=== PATIENT | female | born 1930 | race Caucasian/White ===

== ENCOUNTER 2018-02-08 11:29 | Inpatient (IN) | payer MEDICARE, OTHER ==
[2018-02-08] VITALS (10 sets, daily range): BP systolic 93–147; BP diastolic 59–75; PULSE 67–105; RESP 16–26; TEMP 96.8–98.3; O2SAT 80–97
[~2018-02-08] VITALS: Ht 157.5 cm; Wt 66.0 kg
--- NOTE | 2018-02-08 12:25 | PD ---
HPI Chief Complaint: Respiratory Symptoms Time Seen by Provider: 12:18 Travel History International Travel<30 days: No Contact w/Intl Traveler<30days: No Traveled to known affect area: No History of Present Illness HPI 87-year-old female patient with history of A. fib currently on Coumadin, previous DVT and PE, previous pulmonary surgery for large PE blood clot, here because she is getting worsening dyspnea on exertion and shortness of breath over last 2 weeks. She denies any fevers, coughing, but complains currently of chest discomfort. She denies any abdominal pain or other symptoms. Modifying Factors: None Associated Signs & Symptoms: Dyspnea on exertion, worsening shortness of breath over the last 2 week, chest discomfort Risk Factors: A. fib [facility] Social History Tobacco Use: No Allergies-Medications (Allergen,Severity, Reaction): Coded Allergies: No Known Allergies (Unverified , 02/08/18) Review of Systems Except as stated in HPI: all other systems reviewed are Neg Physical Exam Narrative GENERAL: Well-developed elderly female patient currently and moderate respiratory distress. Awake and oriented 3. SKIN: Focused skin assessment warm/dry. HEAD: Atraumatic. Normocephalic. EYES: Pupils equal and round. No scleral icterus. No injection or drainage. ENT: No nasal bleeding or discharge. Mucous membranes pink and moist. NECK: Trachea midline. No JVD. Supple. CARDIOVASCULAR: Regular rate and rhythm. No murmur appreciated. RESPIRATORY: Moderate accessory muscle use. Decreased throughout. Breath sounds equal bilaterally. GASTROINTESTINAL: Abdomen soft, non-tender, nondistended. Hepatic and splenic margins not palpable. MUSCULOSKELETAL: No obvious deformities. No clubbing. No cyanosis. Left leg edema. NEUROLOGICAL: Awake and alert. No obvious cranial nerve deficits. Motor grossly within normal limits. Normal speech. PSYCHIATRIC: Appropriate mood and affect; insight and judgment normal. Data Data Last Documented VS Vital Signs Date Time Temp Pulse Resp B/P (MAP) Pulse Ox O2 Delivery O2 Flow Rate FiO2 02/08/18 14:00 67 24 93/68 (76) 97 Nasal Cannula 3.00 02/08/18 11:32 96.8 Orders Orders Electrocardiogram (02/08/18 ) Complete Blood Count With Diff (02/08/18 12:18) Comprehensive Metabolic Panel (02/08/18 12:18) B-Type Natriuretic Peptide (02/08/18 12:18) Act Partial Throm Time (Ptt) (02/08/18 12:18) Prothrombin Time / Inr (Pt) (02/08/18 12:18) Ckmb (Isoenzyme) Profile (02/08/18 12:18) Troponin I (02/08/18 12:18) Arterial Blood Gas (Abg) (02/08/18 12:18) Iv Access Insert/Monitor (02/08/18 12:18) Electrocardiogram (02/08/18 12:18) Ecg Monitoring (02/08/18 12:18) Oximetry (02/08/18 12:18) Oxygen Administration (02/08/18 12:18) Chest, Single Ap (02/08/18 12:18) Sodium Chloride 0.9% Flush (Ns Flush) (02/08/18 12:30) Blood Culture (02/08/18 12:18) Ct Pulmonary Angiogram (02/08/18 13:53) Iohexol 350 Inj (Omnipaque 350 Inj) (02/08/18 14:35) Heparin Inj (Heparin Inj) (02/08/18 15:04) Heparin Inj (Heparin Inj) (02/08/18 21:15) Heparin Inj (Heparin Inj) (02/08/18 21:15) Heparin-D5w 25,000 U/250 Ml (Heparin-D5w (02/08/18 15:15) Act Partial Throm Time (Ptt) (02/08/18 15:04) Cbc No Diff, Includes Plts (02/08/18 15:04) Cbc No Diff, Includes Plts (02/11/18 06:00) Act Partial Throm Time (Ptt) (02/08/18 22:04) Occult Blood (Hemoccult) Stool (02/08/18 15:04) Admit Order (Ed Use Only) (02/08/18 15:36) Labs Laboratory Tests Test 02/08/18 12:30 02/08/18 12:55 White Blood Count 8.1 TH/MM3 Red Blood Count 3.83 MIL/MM3 Hemoglobin 12.3 GM/DL Hematocrit 36.4 % Mean Corpuscular Volume 94.9 FL Mean Corpuscular Hemoglobin 32.2 PG Mean Corpuscular Hemoglobin Concent 33.9 % Red Cell Distribution Width 16.5 % Platelet Count 126 TH/MM3 Mean Platelet Volume 10.2 FL CBC Comment AUTO DIFF Differential Total Cells Counted 100 Neutrophils % (Manual) 50 % Band Neutrophils % 4 % Lymphocytes % 9 % Monocytes % 36 % Basophils % 1 % Neutrophils # (Manual) 4.4 TH/MM3 Differential Comment FINAL DIFF MANUAL Platelet Estimate LOW Platelet Morphology Comment NORMAL Red Cell Morphology Comment NORMAL Prothrombin Time 14.4 SEC Prothromb Time International Ratio 1.4 RATIO Activated Partial Thromboplast Time 27.5 SEC Blood Urea Nitrogen 17 MG/DL Creatinine 0.86 MG/DL Random Glucose 159 MG/DL Total Protein 6.3 GM/DL Albumin 3.1 GM/DL Calcium Level 8.1 MG/DL Alkaline Phosphatase 55 U/L Aspartate Amino Transf (AST/SGOT) 21 U/L Alanine Aminotransferase (ALT/SGPT) 18 U/L Total Bilirubin 1.1 MG/DL Sodium Level 144 MEQ/L Potassium Level 3.3 MEQ/L Chloride Level 109 MEQ/L Carbon Dioxide Level 27.3 MEQ/L Anion Gap 8 MEQ/L Estimat Glomerular Filtration Rate 62 ML/MIN Total Creatine Kinase 22 U/L Troponin I LESS THAN 0.02 NG/ML B-Type Natriuretic Peptide 369 PG/ML Blood Gas Puncture Site RT RADIAL Blood Gas Patient Temperature 98.6 Blood Gas HCO3 27 mmol/L Blood Gas Base Excess 3.1 mmol/L Blood Gas Oxygen Saturation 91 % Arterial Blood pH 7.47 Arterial Blood Partial Pressure CO2 37 mmHg Arterial Blood Partial Pressure O2 65 mmHG Arterial Blood Oxygen Content 14.5 Vol % Arterial Blood Carboxyhemoglobin 2.2 % Arterial Blood Methemoglobin 0.5 % Blood Gas Hemoglobin 11.4 G/DL Oxygen Delivery Device NASAL CANNULA Blood Gas Liter Flow 4 L/M [facility] Medical Decision Making Medical Screen Exam Complete: Yes Emergency Medical Condition: Yes Medical Record Reviewed: Yes Interpretation(s) EKG shows NSR, no ST elevation or depression, and no arrhythmias. No significant T-wave inversions. Laboratory Tests Test 02/08/18 12:30 02/08/18 12:55 Red Blood Count 3.83 MIL/MM3 (4.00-5.30) Platelet Count 126 TH/MM3 (150-450) Monocytes % 36 % (0-8) Platelet Estimate LOW (NORMAL) Prothrombin Time 14.4 SEC (9.8-11.6) Random Glucose 159 MG/DL (74-106) Total Protein 6.3 GM/DL (6.4-8.2) Albumin 3.1 GM/DL (3.4-5.0) Calcium Level 8.1 MG/DL (8.5-10.1) Total Bilirubin 1.1 MG/DL (0.2-1.0) Potassium Level 3.3 MEQ/L (3.5-5.1) Chloride Level 109 MEQ/L (98-107) Estimat Glomerular Filtration Rate 62 ML/MIN (>89) Total Creatine Kinase 22 U/L (26-192) Troponin I LESS THAN 0.02 NG/ML B-Type Natriuretic Peptide 369 PG/ML (0-100) Blood Gas HCO3 27 mmol/L (22-26) Blood Gas Base Excess 3.1 mmol/L (-2-2) Arterial Blood pH 7.47 (7.380-7.420) Arterial Blood Partial Pressure CO2 37 mmHg (38-42) Blood Gas Hemoglobin 11.4 G/DL (12.0-16.0) Last [address] Angiography 02/08/18 1353 Signed Impressions: Service Date/Time: January 14:33 - CONCLUSION: 1. There is evidence of pulmonary emboli in 2 segmental branches of the right lower lung. 2. Scattered diffuse interstitial infiltrates bilaterally. 3. Atelectasis in the right lung base. 4. Diffuse cardiomegaly. Niko Haq MD Chest X-Ray 02/08/18 1218 Signed Impressions: Service Date/Time: January 12:20 - CONCLUSION: Cardiomegaly. Scattered perihilar patchiness consistent with atelectasis and/or mild infiltrates. Dell Chambers MD Differential Diagnosis Dyspnea on exertion worsening shortness of breath: Dysrhythmias versus CHF versus COPD versus pneumonia versus symptomatic anemia Narrative Course Chest x-ray was done initially showing bilateral infiltrates with left lower lobe infiltrates concerning for underlying pneumonia. However, considering her history, PE study was also done which shows a PE. Her INR is mildly low as well. She was initiated on heparin therapy. At this point, plan would be to admit her for further treatment. Case has been discussed with Dr. Doshi for admission. Diagnosis Primary Impression: Shortness of breath Additional Impression: Pulmonary embolism Admitting Information Admitting Physician Requests: Admit Rosaline Balbuena MD Feb 08, 2018 12:25
[2018-02-08] MEDS ORDERED: SODIUM CHLORIDE 0.9% FLUSH 10 ML FLUSH IVF PRN (12:30)
--- NOTE | 2018-02-08 12:58 | RADRPT ---
EXAM DATE/TIME: 02/08/2018 12:20 [facility] COMPARISON: No previous studies available for comparison. INDICATIONS : Short of breath for a week. MEDICAL HISTORY : Unobtainable. SURGICAL HISTORY : Unobtainable. ENCOUNTER: Initial ACUITY: 1 week PAIN SCORE: Non-responsive. LOCATION: Bilateral chest FINDINGS: Median sternotomy wires are noted status post cardiac surgery. The heart is enlarged. Scattered perih ilar patchiness is noted bilaterally consistent with possible atelectasis and/or mild infiltrates. Le ft subclavian dual lead pacemaker has its tips in the right atrium and right ventricle. No pneumothor ax is noted. CONCLUSION: Cardiomegaly. Scattered perihilar patchiness consistent with atelectasis and/or mild infiltrates. Dell Chambers MD on February 08, 2018 at 12:55 Board Certified Radiologist. This report was verified electronically.
[2018-02-08 13:03] LABS: HEMATOCRIT 36.4 % (35.0-46.0); HEMOGLOBIN 12.3 GM/DL (11.6-15.3); MEAN CELL VOLUME 94.9 FL (80.0-100.0); MEAN CORPUSCULAR HEMOGLOBIN 32.2 PG (27.0-34.0); MEAN CORPUSCULAR HGB CONC 33.9 % (32.0-36.0); MEAN PLATELET VOLUME 10.2 FL (7.0-11.0); PLATELET COUNT 126 TH/MM3 (150-450); RED BLOOD COUNT 3.83 MIL/MM3 (4.00-5.30); RED CELL DISTRIBUTION WIDTH 16.5 % (11.6-17.2); WHITE BLOOD COUNT 8.1 TH/MM3 (4.0-11.0)
[2018-02-08 13:10] LABS: INTERNATIONAL NORMALIZED RATIO 1.4 RATIO; PROTHROMBIN TIME - PATIENT 14.4 SEC (9.8-11.6)
[2018-02-08 13:22] LABS: ALBUMIN 3.1 GM/DL (3.4-5.0); ALT (GPT) 18 U/L (10-53); AST (GOT) 21 U/L (15-37); BICARBONATE 27.3 MEQ/L (21.0-32.0); BLOOD UREA NITROGEN 17 MG/DL (7-18); CALCIUM 8.1 MG/DL (8.5-10.1); CHLORIDE 109 MEQ/L (98-107); CREATININE 0.86 MG/DL (0.50-1.00); GLOMERULAR FILTRATION RATE 62 ML/MIN (>89); GLUCOSE,RANDOM 159 MG/DL (74-106); SODIUM (NA) 144 MEQ/L (136-145)
[2018-02-08 13:26] LABS: ALKALINE PHOSPHATASE 55 U/L (45-117); TOTAL BILIRUBIN ADULT 1.1 MG/DL (0.2-1.0); TOTAL PROTEIN 6.3 GM/DL (6.4-8.2); TROPONIN I LESS THAN 0.02 NG/ML (0.02-0.05)
[2018-02-08 13:34] LABS: BANDS 4 % (0-6); BASOPHILS 1 % (0-2); LYMPHOCYTES 9 % (9-44); MONOCYTES 36 % (0-8); NEUTROPHIL # MANUAL DIFF 4.4 TH/MM3 (1.8-7.7); POLYS (SEG NEUTROPHILS) 50 % (16-70)
[2018-02-08] MEDS ORDERED: IOHEXOL 350 MG/ML 10 ML VIAL (for RAD DIAG) IVCONTRAST ONE (14:35)
--- NOTE | 2018-02-08 15:00 | RADRPT ---
EXAM DATE/TIME: 02/08/2018 14:33 [facility] COMPARISON: No previous studies available for comparison. INDICATIONS : Dyspnea for 1 week IV CONTRAST: 73 cc Omnipaque 350 (iohexol) IV RADIATION DOSE: 9.39 CTDIvol (mGy) MEDICAL HISTORY : None SURGICAL HISTORY : None. ENCOUNTER: Initial ACUITY: 1 week PAIN SCALE: 0/10 LOCATION: chest TECHNIQUE: Volumetric scanning of the chest was performed using a pulmonary embolism protocol MIP images were re constructed. Using automated exposure control and adjustment of the mA and/or kV according to patien t size, radiation dose was kept as low as reasonably achievable to obtain optimal diagnostic quality images. DICOM format image data is available electronically for review and comparison. Follow-up recommendations for detected pulmonary nodules are based at a minimum on nodule size and pa tient risk factors according to Fleischner Society Guidelines. FINDINGS: PULMONARY ARTERIES: There are 2 filling defects in segmental branches of the posterior right lower lung pulmonary arterie s. This is characteristic for pulmonary embolism. No definite pulmonary emboli are seen in the left p ulmonary artery surgery. LUNGS: Scattered interstitial infiltrates are seen throughout both lung amanda. There is atelectasis in the right lung base. PLEURAE: There is no pleural thickening or pleural effusion. MEDIASTINUM: There is good visualization of the great vessels of the middle mediastinum. No evidence of mediastin al or hilar adenopathy/mass. Cardiomegaly. MUSCULOSKELETAL: Within normal limits for patient age. MISCELLANEOUS: The visualized upper abdominal organs demonstrate no acute abnormality. CONCLUSION: 1. There is evidence of pulmonary emboli in 2 segmental branches of the right lower lung. 2. Scattered diffuse interstitial infiltrates bilaterally. 3. Atelectasis in the right lung base. 4. Diffuse cardiomegaly. Niko Haq MD on February 08, 2018 at 14:55 Board Certified Radiologist. This report was verified electronically.
[2018-02-08] MEDS ORDERED: HEPARIN - 10,000 UNITS/ML IV ADDITIVE IV PUSH STA (15:04)
[2018-02-08] MEDS ORDERED: BISACODYL 10 MG SUPP RECTAL PRN (15:45)
[2018-02-08] MEDS ORDERED: MAGNESIUM HYDROXIDE SUSP 30 ML CUP PO PRN (15:45)
[2018-02-08] MEDS ORDERED: SENNOSIDES 8.6 MG TAB PO PRN (15:45)
[2018-02-08] MEDS ORDERED: LACTULOSE SYRUP 20 GM/30 ML CUP PO PRN (15:45)
[2018-02-08] MEDS ORDERED: NALOXONE HCL 0.4 MG/ML AMP IV PUSH PRN (15:45)
[2018-02-08] MEDS ORDERED: ONDANSETRON HCL 4 MG/2 ML VIAL IVP PRN (15:45)
[2018-02-08 16:21] LABS: HEMATOCRIT 33.8 % (35.0-46.0); HEMOGLOBIN 11.5 GM/DL (11.6-15.3); MEAN CELL VOLUME 95.3 FL (80.0-100.0); MEAN CORPUSCULAR HEMOGLOBIN 32.3 PG (27.0-34.0); MEAN CORPUSCULAR HGB CONC 33.9 % (32.0-36.0); MEAN PLATELET VOLUME 10.1 FL (7.0-11.0); PLATELET COUNT 124 TH/MM3 (150-450); RED BLOOD COUNT 3.55 MIL/MM3 (4.00-5.30); RED CELL DISTRIBUTION WIDTH 16.6 % (11.6-17.2); WHITE BLOOD COUNT 6.9 TH/MM3 (4.0-11.0)
[2018-02-08] MEDS ORDERED: HEPARIN SODIUM - IV 10,000 UNITS/10 ML VIAL IV PUSH STA (17:14)
[2018-02-08] MEDS: HEPARIN-D5W 25,000 U/250 ML 250 ML IV PRN (17:29)
--- NOTE | 2018-02-08 19:10 | HHI.HP ---
[facility] Unknown Admission Diagnosis Shortness of breath/hypoxia/PE Diagnoses: Travel History International Travel<30 Days: No Contact w/Intl Traveler <30 Da: No Traveled to Known Affected Are: No History of Present Illness Patient is an 87-year-old female with past medical history of tremors, history of rib fractures/T8 fracture, PE, atrial fibrillation presented to the emergency room with worsening shortness of breath. Patient states this started about a week ago. It progressively got worse to the point that today she told her that she needed to go to the emergency room for further evaluation. She states that she chronically uses oxygen at home and uses about 2.5 L a day. She states that the tremors do affect her speech and that is normal for her. She is from [facility] and is visiting. She is supposed to leave to [place] on Monday. She states that she is on Coumadin, however, her dose was decreased while she was on a prednisone taper. She was put on a prednisone taper by her vegetable farmer because of low platelet count. She does not know the actual diagnosis however her last platelet which was measured in January of this year was 108. She states she was on the prednisone for 5 weeks and prior to being on prednisone her Coumadin dose was 2 mg p.o. daily, now she is taking 1mg po daily. She denies any chest pain, nausea or vomiting, abdominal pain, burning with urination or increased urinary frequency. She does have some sinus drainage, admits to mild cough related to that. Review of Systems Except as stated in HPI: all other systems reviewed are Neg Past Family Social History Past Medical History tremors, history of rib fractures/T8 fracture, PE, atrial fibrillation Past Surgical History Ovary removal, clot removal from her lungs Reported Medications Pt brought her medication pills box but didn't bring her actual bottles and doesn't know what meds she takes or dose Allergies: Coded Allergies: No Known Allergies (Unverified , 02/08/18) Family History Both parents of old age Social History Quit smoking in the 1960s, drinks alcohol occasionally, denies illegal drug use Physical Exam Vital Signs Vital Signs Date Time Temp Pulse Resp B/P (MAP) Pulse Ox O2 Delivery O2 Flow Rate FiO2 02/08/18 17:39 02/08/18 16:52 68 22 123/59 (80) 94 Nasal Cannula 4.00 02/08/18 16:00 98.3 70 16 124/75 (91) 91 02/08/18 14:00 67 24 93/68 (76) 97 Nasal Cannula 3.00 02/08/18 12:21 95 Nasal Cannula 4.00 02/08/18 12:21 69 20 107/59 (75) 95 Nasal Cannula 4.00 02/08/18 12:16 97 Nasal Cannula 4.00 02/08/18 12:16 70 26 107/59 (75) 96 Nasal Cannula 4.00 02/08/18 11:32 96.8 105 26 112/61 (78) 80 Physical Exam GENERAL: Pleasant elderly female, nasal cannula in place, satting 90% on 5 L SKIN: No rashes, ecchymoses or lesions. Cool and dry. HEAD: Atraumatic. Normocephalic. EYES: Pupils equal round and reactive. Extraocular motions intact. ENT: Nose without drainage. Throat without erythema, tonsillar hypertrophy or exudate. Uvula midline. Airway patent. NECK: Trachea midline. CARDIOVASCULAR: Regular rate and rhythm without murmurs RESPIRATORY: Decreased breath sounds however no wheezing or crackles. Breath sounds equal bilaterally. GASTROINTESTINAL: Abdomen soft, non-tender, nondistended. No guarding. MUSCULOSKELETAL: Mild edema noted on the left lower extremity, none noted on the right. Negative Homans sign bilaterally. NEUROLOGICAL: Awake and alert. Motor and sensory grossly within normal limits. Normal speech. Laboratory Laboratory Tests Test 02/08/18 12:30 02/08/18 12:55 02/08/18 15:30 White Blood Count 8.1 6.9 Red Blood Count 3.83 3.55 Hemoglobin 12.3 11.5 Hematocrit 36.4 33.8 Mean Corpuscular Volume 94.9 95.3 Mean Corpuscular Hemoglobin 32.2 32.3 Mean Corpuscular Hemoglobin Concent 33.9 33.9 Red Cell Distribution Width 16.5 16.6 Platelet Count 126 124 Mean Platelet Volume 10.2 10.1 CBC Comment AUTO DIFF Differential Total Cells Counted 100 Neutrophils % (Manual) 50 Band Neutrophils % 4 Lymphocytes % 9 Monocytes % 36 Basophils % 1 Neutrophils # (Manual) 4.4 Differential Comment FINAL DIFF MANUAL Platelet Estimate LOW Platelet Morphology Comment NORMAL Red Cell Morphology Comment NORMAL Prothrombin Time 14.4 Prothromb Time International Ratio 1.4 Activated Partial Thromboplast Time 27.5 26.8 Blood Urea Nitrogen 17 Creatinine 0.86 Random Glucose 159 Total Protein 6.3 Albumin 3.1 Calcium Level 8.1 Alkaline Phosphatase 55 Aspartate Amino Transf (AST/SGOT) 21 Alanine Aminotransferase (ALT/SGPT) 18 Total Bilirubin 1.1 Sodium Level 144 Potassium Level 3.3 Chloride Level 109 Carbon Dioxide Level 27.3 Anion Gap 8 Estimat Glomerular Filtration Rate 62 Total Creatine Kinase 22 Troponin I LESS THAN 0.02 B-Type Natriuretic Peptide 369 Blood Gas Puncture Site RT RADIAL Blood Gas Patient Temperature 98.6 Blood Gas HCO3 27 Blood Gas Base Excess 3.1 Blood Gas Oxygen Saturation 91 Arterial Blood pH 7.47 Arterial Blood Partial Pressure CO2 37 Arterial Blood Partial Pressure O2 65 Arterial Blood Oxygen Content 14.5 Arterial Blood Carboxyhemoglobin 2.2 Arterial Blood Methemoglobin 0.5 Blood Gas Hemoglobin 11.4 Oxygen Delivery Device NASAL CANNULA Blood Gas Liter Flow 4 Date/Time Source Procedure Growth Status 02/08/18 12:30 Blood Peripheral Aerobic Blood Culture Pending Received 02/08/18 12:30 Blood Peripheral Anaerobic Blood Culture Pending Received Result Diagram: 02/08/18 1530 02/08/[address] Angiography 02/08/18 1353 Signed Impressions: Service Date/Time: January 14:33 - CONCLUSION: 1. There is evidence of pulmonary emboli in 2 segmental branches of the right lower lung. 2. Scattered diffuse interstitial infiltrates bilaterally. 3. Atelectasis in the right lung base. 4. Diffuse cardiomegaly. Niko Haq MD Chest X-Ray 02/08/18 1218 Signed Impressions: Service Date/Time: January 12:20 - CONCLUSION: Cardiomegaly. Scattered perihilar patchiness consistent with atelectasis and/or mild infiltrates. MD Ayush Jonesi VTE Risk Assessment Caprini VTE Risk Assessment: Mod/High Risk (score >= 2) Caprini Risk Assessment Model Point Value = 1 Point Value = 2 Point Value = 3 Point Value = 5 Age 41-60 Minor surgery BMI > 25 kg/m2 Swollen legs Varicose veins or History of unexplained or recurrent spontaneous Oral contraceptives or hormone replacement Sepsis (< 1 month) Serious lung disease, including pneumonia (< 1 month) Abnormal pulmonary function Acute myocardial infarction Congestive heart failure (< 1 month) History of inflammatory bowel disease Medical patient at bed rest Age 61-74 Arthroscopic surgery Major open surgery (> 45 min) Laparoscopic surgery (> 45 min) Malignancy Confined to bed (> 72 hours) Immobilizing plaster cast Central venous access Age >= 75 History of VTE Family history of VTE Factor V Leiden Prothrombin [id number] Lupus anticoagulant Anticardiolipin antibodies Elevated serum homocysteine Heparin-induced thrombocytopenia Other congenital or acquired thrombophilia Stroke (< 1 month) Elective arthroplasty Hip, pelvis, or leg fracture Acute spinal cord injury (< 1 month) Prophylaxis Regimen Total Risk Factor Score Risk Level Prophylaxis Regimen 0-1 Low Early ambulation 2 Moderate Order ONE of the following: *Sequential Compression Device (SCD) *Heparin 5000 units SQ BID 3-4 Higher Order ONE of the following medications: *Heparin 5000 units SQ TID *Enoxaparin/Lovenox 40 mg SQ daily (WT < 150 kg, CrCl > 30 mL/min) *Enoxaparin/Lovenox 30 mg SQ daily (WT < 150 kg, CrCl > 10-29 mL/min) *Enoxaparin/Lovenox 30 mg SQ BID (WT < 150 kg, CrCl > 30 mL/min) AND/OR *Sequential Compression Device (SCD) 5 or more Highest Order ONE of the following medications: *Heparin 5000 units SQ TID (Preferred with Epidurals) *Enoxaparin/Lovenox 40 mg SQ daily (WT < 150 kg, CrCl > 30 mL/min) *Enoxaparin/Lovenox 30 mg SQ daily (WT < 150 kg, CrCl > 10-29 mL/min) *Enoxaparin/Lovenox 30 mg SQ BID (WT < 150 kg, CrCl > 30 mL/min) AND *Sequential Compression Device (SCD) Assessment and Plan Assessment and Plan PE: CTA showed PE into segmental branches of the right lower lung. Patient started on a heparin drip. Check 2D echo to rule out any cardiac strain. consider resuming coumadin to 2mg po daily (dose prior to cutting it in half while on prednisone) tomorrow or discuss use of newer anticoagulants. Per pt, she was doing well w coumadin however on admission INR was 1.4. continue supplemental oxygen. Currently on 5 L. ABG showed a pH of 7.47, HCO3 of 27, CO2 of 37. Monitor pt closely. Pt wishes to be DNR. Atrial fibrillation: Pt only has her pill box and doesn't have her med bottles and doesn't remember the actual dose or what meds she takes. She states she is on sotalol and cardizem. She did have a bottle of cardizem CD 120mg po qhs which apparently she started taking 2 nights ago but states she also takes cardizem in AM but doesn't remember dose. She also doesn't remember dose of sotalol. I have requested that RN bring pills to pharmacy and see if the pharmacist can assist us w pt's meds. tremors: chronic and stable. DVT proph: heparin gtt. Code Status DNR Discussed Condition With ER physician and patient Sally Doshi MD Feb 08, 2018 19:10
[2018-02-08] MEDS ORDERED: DILTIAZEM-CD 120 MG CAP ER PO SCH (21:00)
[2018-02-08] MEDS ORDERED: HEPARIN SODIUM - IV 10,000 UNITS/10 ML VIAL IV PUSH PRN ×2 (21:15)
[2018-02-08] MEDS: DOCUSATE SODIUM 50 MG/SENNA 8.6 MG TAB PO SCH (21:42)
[2018-02-08] MEDS: SODIUM CHLORIDE 0.9% FLUSH 10 ML FLUSH IV FLUSH SCH (21:43)
[2018-02-08] MEDS: RESP: ALBUTEROL 2.5 MG/IPRATROPIUM 0.5 MG NEB (PRN) NEB (22:09)
[2018-02-09] VITALS (9 sets, daily range): BP systolic 125–130; BP diastolic 58–74; PULSE 66–88; RESP 16–21; TEMP 97.2–98.2; O2SAT 87–95
--- NOTE | 2018-02-09 01:53 | RADRPT ---
EXAM DATE/TIME: 02/09/2018 01:18 [facility] COMPARISON: CT PULMONARY ANGIOGRAM, February 08, 2018, 14:33. CHEST SINGLE AP, February 08, 2018, 12:20. INDICATIONS : Respiratory distress. Worsening shortness of breath. MEDICAL HISTORY : None. SURGICAL HISTORY : None. ENCOUNTER: Subsequent ACUITY: 2 days PAIN SCORE: 0/10 LOCATION: Bilateral chest FINDINGS: Patchy bibasilar consolidation noted and appears slightly slightly worse compared to yesterday. No la rge effusion seen. No pneumothorax. Heart size stable, mildly enlarged. Patient has had previous median sternotomy. Cardiac pacer again s een. CONCLUSION: Modest worsening bibasilar consolidation. Rom Moses MD on February 09, 2018 at 1:49 Board Certified Radiologist. This report was verified electronically.
[2018-02-09] MEDS: RESP: ALBUTEROL 2.5 MG/IPRATROPIUM 0.5 MG NEB (PRN) NEB (04:41)
[2018-02-09] MEDS: SODIUM CHLORIDE 0.9% FLUSH 10 ML FLUSH IV FLUSH SCH ×3 (09:00→21:00)
[2018-02-09] MEDS: DOCUSATE SODIUM 50 MG/SENNA 8.6 MG TAB PO SCH ×2 (10:29→21:59)
[2018-02-09] MEDS: SODIUM CHLORIDE 0.9% FLUSH 10 ML FLUSH IV FLUSH PRN (10:30)
[2018-02-09 11:09] LABS: INTERNATIONAL NORMALIZED RATIO 1.4 RATIO; PROTHROMBIN TIME - PATIENT 14.3 SEC (9.8-11.6)
--- NOTE | 2018-02-09 11:15 | EKG ---
Date Performed: 02/08/2018 Time Performed: 12:19:33 PTAGE: 87 years EKG: Sinus rhythm POSSIBLE LEFT ATRIAL ENLARGEMENT NONSPECIFIC T-WAVE ABNORMALITY BORDERLINE ECG NO PREVIOUS TRACING DOCTOR: Elieser Donahue Interpretating Date/Time 02/12/2018 07:51:19
--- NOTE | 2018-02-09 11:15 | EKG ---
Date Performed: 02/08/2018 Time Performed: 12:54:37 PTAGE: 87 years EKG: Sinus rhythm WITH OCCASIONAL VENTRICULAR PREMATURE COMPLEXES WITH OCCASIONAL SUPRAVENTRICULAR PREMATURE COMPLEXES POSSIBLE RIGHT VENTRICULAR CONDUCTION DELAY NONSPECIFIC ST & T-WAVE ABNORMALITY BORDERLINE ECG PREVIOUS TRACING : 02/08/2018 12.19 DOCTOR: Elieser Donahue Interpretating Date/Time 02/09/2018 11:12:20
[2018-02-09] MEDS ORDERED: RESP: ALBUTEROL 2.5 MG/3 ML NEB (PRN) INH (11:30)
[2018-02-09] MEDS ORDERED: SODIUM CHLORIDE 0.9% FLUSH 10 ML FLUSH IV FLUSH PRN (11:30)
[2018-02-09] MEDS ORDERED: RESP: ALBUTEROL 2.5 MG/IPRATROPIUM 0.5 MG NEB (PRN) INH (11:30)
[2018-02-09] MEDS ORDERED: TYLE325T PO (11:36)
[2018-02-09] MEDS ORDERED: KLOR20TA3 PO (11:36)
[2018-02-09] MEDS ORDERED: DILT-48 PO (11:36)
[2018-02-09] MEDS ORDERED: [UNRECOGNIZED DRUG - OTHER] OP (11:36)
[2018-02-09] MEDS ORDERED: PRED10 PO (11:36)
[2018-02-09] MEDS ORDERED: FURO20TA PO (11:36)
[2018-02-09] MEDS ORDERED: SOTA120T PO (11:36)
[2018-02-09] MEDS ORDERED: ADCI20TA PO (11:36)
[2018-02-09] MEDS ORDERED: OMEP40CA2 PO (11:36)
[2018-02-09] MEDS ORDERED: WARF-20 PO (11:36)
[2018-02-09] MEDS ORDERED: DILT1TAB4 PO (11:36)
[2018-02-09] MEDS ORDERED: CHOL5000 PO (11:36)
--- NOTE | 2018-02-09 11:42 | HHI.PR ---
Subjective Remarks Patient is an 87-year-old female with past medical history of tremors, history of rib fractures/T8 fracture, PE, atrial fibrillation presented to the emergency room with worsening shortness of breath. Patient states this started about a week ago. It progressively got worse to the point that today she told her that she needed to go to the emergency room for further evaluation. She states that she chronically uses oxygen at home and uses about 2.5 L a day. She states that the tremors do affect her speech and that is normal for her. She is from [facility] and is visiting. She is supposed to leave to [place] on Monday. She states that she is on Coumadin, however, her dose was decreased while she was on a prednisone taper. She was put on a prednisone taper by her rides attendant because of low platelet count. She does not know the actual diagnosis however her last platelet which was measured in January of this year was 108. She states she was on the prednisone for 5 weeks and prior to being on prednisone her Coumadin dose was 2 mg p.o. daily, now she is taking 1mg po daily. She denies any chest pain, nausea or vomiting, abdominal pain, burning with urination or increased urinary frequency. She does have some sinus drainage, admits to mild cough related to that. 3-30 still very short of breath today On nonrebreather mask Needs to load Coumadin Consult pulmonary and consult oncology Needs to continue on the Lovenox Discussed with patient and RN and case managed HOME MEDS OBTAINED AND RECONCILED Objective Vitals Vital Signs Date Time Temp Pulse Resp B/P (MAP) Pulse Ox O2 Delivery O2 Flow Rate FiO2 02/09/18 08:00 98.1 81 21 129/74 (92) 91 02/09/18 04:00 76 02/09/18 04:00 97.6 77 18 130/61 (84) 93 02/09/18 00:00 79 02/09/18 00:00 97.7 78 18 129/61 (83) 94 02/08/18 23:30 93 Partial Rebreather 15.00 02/08/18 23:12 Partial Non-Rebreather 11.00 02/08/18 22:10 93 Simple Mask 10.00 02/08/18 21:22 86 Simple Mask 11.00 02/08/18 20:00 75 02/08/18 20:00 97.8 77 18 147/66 (93) 91 02/08/18 18:25 73 02/08/18 17:39 02/08/18 16:52 68 22 123/59 (80) 94 Nasal Cannula 4.00 02/08/18 16:00 98.3 70 16 124/75 (91) 91 02/08/18 14:00 67 24 93/68 (76) 97 Nasal Cannula 3.00 02/08/18 12:21 95 Nasal Cannula 4.00 02/08/18 12:21 69 20 107/59 (75) 95 Nasal Cannula 4.00 02/08/18 12:16 97 Nasal Cannula 4.00 02/08/18 12:16 70 26 107/59 (75) 96 Nasal Cannula 4.00 02/08/18 11:32 96.8 105 26 112/61 (78) 80 I/O 02/08/18 02/08/18 02/08/18 02/09/18 02/09/18 02/09/18 07:00 15:00 23:00 07:00 15:00 23:00 Intake Total 142 ml Balance 142 ml Intake IV Total 142 ml Result Diagram: 02/08/18 1530 02/08/18 1230 Other Results Laboratory Tests Test 02/08/18 12:30 02/08/18 12:55 02/08/18 15:30 02/08/18 23:15 White Blood Count 8.1 TH/MM3 6.9 TH/MM3 Red Blood Count 3.83 MIL/MM3 3.55 MIL/MM3 Hemoglobin 12.3 GM/DL 11.5 GM/DL Hematocrit 36.4 % 33.8 % Mean Corpuscular Volume 94.9 FL 95.3 FL Mean Corpuscular Hemoglobin 32.2 PG 32.3 PG Mean Corpuscular Hemoglobin Concent 33.9 % 33.9 % Red Cell Distribution Width 16.5 % 16.6 % Platelet Count 126 TH/MM3 124 TH/MM3 Mean Platelet Volume 10.2 FL 10.1 FL CBC Comment AUTO DIFF Differential Total Cells Counted 100 Neutrophils % (Manual) 50 % Band Neutrophils % 4 % Lymphocytes % 9 % Monocytes % 36 % Basophils % 1 % Neutrophils # (Manual) 4.4 TH/MM3 Differential Comment FINAL DIFF MANUAL Platelet Estimate LOW Platelet Morphology Comment NORMAL Red Cell Morphology Comment NORMAL Prothrombin Time 14.4 SEC Prothromb Time International Ratio 1.4 RATIO Activated Partial Thromboplast Time 27.5 SEC 26.8 SEC 71.3 SEC Blood Urea Nitrogen 17 MG/DL Creatinine 0.86 MG/DL Random Glucose 159 MG/DL Total Protein 6.3 GM/DL Albumin 3.1 GM/DL Calcium Level 8.1 MG/DL Alkaline Phosphatase 55 U/L Aspartate Amino Transf (AST/SGOT) 21 U/L Alanine Aminotransferase (ALT/SGPT) 18 U/L Total Bilirubin 1.1 MG/DL Sodium Level 144 MEQ/L Potassium Level 3.3 MEQ/L Chloride Level 109 MEQ/L Carbon Dioxide Level 27.3 MEQ/L Anion Gap 8 MEQ/L Estimat Glomerular Filtration Rate 62 ML/MIN Total Creatine Kinase 22 U/L Troponin I LESS THAN 0.02 NG/ML B-Type Natriuretic Peptide 369 PG/ML Blood Gas Puncture Site RT RADIAL Blood Gas Patient Temperature 98.6 Blood Gas HCO3 27 mmol/L Blood Gas Base Excess 3.1 mmol/L Blood Gas Oxygen Saturation 91 % Arterial Blood pH 7.47 Arterial Blood Partial Pressure CO2 37 mmHg Arterial Blood Partial Pressure O2 65 mmHG Arterial Blood Oxygen Content 14.5 Vol % Arterial Blood Carboxyhemoglobin 2.2 % Arterial Blood Methemoglobin 0.5 % Blood Gas Hemoglobin 11.4 G/DL Oxygen Delivery Device NASAL CANNULA Blood Gas Liter Flow 4 L/M Test 02/09/18 07:49 Prothrombin Time 14.3 SEC Prothromb Time International Ratio 1.4 RATIO Activated Partial Thromboplast Time 68.9 SEC Imaging Last Impressions Chest X-Ray 02/09/18 0000 Signed Impressions: Service Date/Time: Friday, February 09, 2018 01:18 - CONCLUSION: Modest worsening bibasilar consolidation. Rom Moses MD CT Angiography 02/08/18 1353 Signed Impressions: Service Date/Time: January 14:33 - CONCLUSION: 1. There is evidence of pulmonary emboli in 2 segmental branches of the right lower lung. 2. Scattered diffuse interstitial infiltrates bilaterally. 3. Atelectasis in the right lung base. 4. Diffuse cardiomegaly. Niko Haq MD Objective Remarks GENERAL: Patient is awake alert and oriented talkative and cooperative having difficulty getting her words out still very short of breath remains on a nonrebreather mask appears to be in moderate to severe distress SKIN: Warm and dry. HEAD: Atraumatic. Normocephalic. EYES: Pupils equal and round. No scleral icterus. No injection or drainage. Extraocular muscles intact glasses ENT: No nasal bleeding or discharge. Mucous membranes pink and moist. Tongue is midline NECK: Trachea midline. No JVD. Supple CARDIOVASCULAR: Regular rate and rhythm. S1-S2 no S3 or S4 RESPIRATORY: No accessory muscle use. Clear to auscultation. Breath sounds equal bilaterally. Decreased breath sounds bilaterally with some scattered rhonchi GASTROINTESTINAL: Abdomen soft, non-tender, nondistended. Hepatic and splenic margins not palpable. MUSCULOSKELETAL: Extremities without clubbing, cyanosis, or edema. No obvious deformities. NEUROLOGICAL: Awake and alert. No obvious cranial nerve deficits. Motor grossly within normal limits. 4 out of 5 muscle strength in the arms and legs. Normal speech. PSYCHIATRIC: Appropriate mood and affect; insight and judgment normal. Medications and IVs Current Medications Sodium Chloride (NS Flush) 2 ml UNSCH PRN IVF FLUSH AFTER USING IV ACCESS; Start 02/08/18 at 12:30; Stop 02/08/18 at 15:44; Status DC Iohexol (Omnipaque 350 Inj) 73 ml STK-MED ONCE IVCONTRAST Last administered on 02/08/18at 14:35; Start 02/08/18 at 14:35; Stop 02/08/18 at 14:37; Status DC Heparin Sodium (Porcine) (Heparin Inj) 5,000 units NOW STAT IV PUSH ; Start at 15:04; Stop 02/08/18 at 15:05; Status DC Heparin Sodium (Porcine) (Heparin Inj) 5,000 units UNSCH PRN IV PUSH APTT LESS THAN 25; Start 02/08/18 at 21:15 Heparin Sodium (Porcine) (Heparin Inj) 2,500 units UNSCH PRN IV PUSH APTT 25 TO 39; Start 02/08/18 at 21:15 Heparin Sodium/ Dextrose 250 ml @ 12 mls/hr TITRATE PRN IV Coagulation Management Last administered on 02/08/18at 17:29; Start 02/08/18 at 15:15 Sodium Chloride (NS Flush) 2 ml UNSCH PRN IV FLUSH FLUSH AFTER USING IV ACCESS ; Start 02/08/18 at 15:45 Sodium Chloride (NS Flush) 2 ml BID IV FLUSH Last administered on 02/08/18at 21: 43; Start 02/08/18 at 21:00 Ondansetron HCl (Zofran Inj) 4 mg Q6H PRN IVP NAUSEA OR VOMITING; Start at 15:45 Naloxone HCl (Narcan Inj) 0.4 mg UNSCH PRN IV PUSH SEE LABEL COMMENTS; Start at 15:45 Senna/Docusate Sodium (Stefany-Colace) 1 tab BID PO Last administered on at 10:29; Start 02/08/18 at 21:00 Magnesium Hydroxide (Milk Of Magnesia Liq) 30 ml Q12H PRN PO Mild constipation ; Start 02/08/18 at 15:45 Sennosides (Senokot) 17.2 mg Q12H PRN PO Moderate constipation; Start 02/08/18 at 15:45 Bisacodyl (Dulcolax Supp) 10 mg DAILY PRN RECTAL SEVERE CONSITIPATION; Start at 15:45 Lactulose (Lactulose Liq) 30 ml DAILY PRN PO SEVERE CONSITIPATION; Start at 15:45 Heparin Sodium (Porcine) (Heparin Inj) 5,000 units NOW STAT IV PUSH Last administered on 02/08/18at 17:20; Start 02/08/18 at 17:14; Stop 02/08/18 at 17:15 ; Status DC Diltiazem HCl (Cardizem Cd) 120 mg HS PO Last administered on 02/08/18at 21:43; Start 02/08/18 at 21:00 Albuterol/ Ipratropium (Duoneb Neb) 1 ampule Q4HR NEB PRN NEB WHEEZING Last administered on 02/09/18at 04:41; Start 02/08/18 at 21:45 A/P Assessment and Plan Pulmonary emboli-- CTA showed PE into segmental branches of the right lower lung. Patient started on a heparin drip. Check 2D echo to rule out any cardiac strain. resuming coumadin to 4mg po daily (dose prior to cutting it in half while on prednisone) tomorrow or discuss use of newer anticoagulants. Per pt, she was doing well with Coumadin however on admission INR was 1.4. continue supplemental oxygen. Currently on 5 L. ABG showed a pH of 7.47, HCO3 of 27, CO2 of 37. Monitor pt closely. Pt wishes to be DNR. Atrial fibrillation: Pt only has her pill box and doesn't have her med bottles and doesn't remember the actual dose or what meds she takes. She states she is on sotalol and cardizem. She did have a bottle of cardizem CD 120mg po qhs which apparently she started taking 2 nights ago but states she also takes cardizem in AM but doesn't remember dose. She also doesn't remember dose of sotalol. I have requested that RN bring pills to pharmacy and see if the pharmacist can assist us w pt's meds. ON DILTIAZEM 120MG IN PM AND 240MG IN AM RELOAD COUMADIN GERD ON PROTONIX ON 2 LITERS OXYGEN AT ALL TIMES SOTALOL 120MG BID VITAMIN D3 Pneumonia we will treat with Rocephin and Zithromax Mucinex duo nebs incentive spirometry and steroids tremors: chronic and stable. PULMONARY HYPERTENSION ON ADCIRCA 20MG DAILY- RESUME RESUME LASIX AND POTASSIUM DVT proph: heparin gtt. Code Status Discharge Planning Not cleared for discharge needs pulm and oncology Evangelista Calvillo DO Feb 09, 2018 11:42
--- NOTE | 2018-02-09 12:31 | RADRPT ---
EXAM DATE/TIME: 02/09/2018 11:45 [facility] COMPARISON: No previous studies available for comparison. INDICATIONS : Pulmonary embolism. MEDICAL HISTORY : Arthritis. Pulmonary embolism. Dyspnea. Arthritis. SURGICAL HISTORY : Bilateral oophorectomy. ENCOUNTER: Initial ACUITY: 1 day PAIN SCORE: 0/10 LOCATION: Bilateral leg. TECHNIQUE: Venous ultrasound of the left and right leg was performed from the inguinal ligament to the proximal calf. Real-time, color Doppler and spectral tracing, compression and augmentation techniques were us ed. FINDINGS: RIGHT LEG: There is normal compressibility of the deep venous system from the inguinal region to the proximal ca lf. No echogenic clot is seen in the lumen of the common femoral, femoral, popliteal, and posterior tibial veins. There is a normal response of the venous system to proximal and distal augmentation an d respiration. LEFT LEG: There is normal compressibility of the deep venous system from the inguinal region to the proximal ca lf. No echogenic clot is seen in the lumen of the common femoral, femoral, popliteal, and posterior tibial veins. There is a normal response of the venous system to proximal and distal augmentation an d respiration. CONCLUSION: Normal examination. Ameya Antoine MD on February 09, 2018 at 12:30 Board Certified Radiologist. This report was verified electronically.
[2018-02-09] MEDS: DILTIAZEM-CD 240 MG CAP ER PO SCH (13:13)
[2018-02-09] MEDS: FUROSEMIDE 20 MG TAB PO SCH (13:14)
[2018-02-09] MEDS: guaiFENesin E.R. 600 MG TAB PO SCH ×2 (13:14→21:58)
[2018-02-09] MEDS: PANTOPRAZOLE SOD 40 MG DELAYED RELEASE TAB PO SCH (13:14)
[2018-02-09] MEDS: POTASSIUM CHLORIDE 20 MEQ CONTROLLED RELEASE TAB PO SCH (13:14)
[2018-02-09] MEDS: methylPREDNISolone SOD SUCC 125 MG/2 ML VIAL IV PUSH SCH ×2 (13:15→17:37)
[2018-02-09] MEDS: HEPARIN-D5W 25,000 U/250 ML 250 ML IV PRN (13:22)
--- NOTE | 2018-02-09 13:30 | MB ---
cc: Gui Palma MD DATE: 02/09/2018 ATTENDING PHYSICIAN: Dr. Schaeffer REASON FOR CONSULTATION: Hematology consulted to render an opinion regarding patient with recurrent pulmonary embolism. HISTORY OF PRESENT ILLNESS: The patient is a very pleasant 87-year-old female who was visiting [facility] from [facility]. She presented to the emergency room with a complaint of increased shortness of breath. She has a history of a pulmonary disorder and has been on chronic oxygen. She cannot really tell me what kind of pulmonary problem she had. She had a history of pulmonary embolism about 15 years ago requiring embolectomy at that time. She has been on Coumadin since that time. She also has a history of chronic atrial fibrillation. She stated that about 5 weeks ago, she was started on prednisone because her platelet count was low and her prednisone was tapered off about a week ago. She stated that the Coumadin dose was reduced from 2 mg a day to 1 mg a day about 4 weeks ago because she was on the prednisone. She had a level check before she came to [place], but she could not tell me whether her level was therapeutic. Any way, her shortness of breath was progressively getting worse over the last 1 week and she came to the emergency room. A CT angiogram showed 2 Right lower lobe segmental branch emboli. There is also diffuse interstitial infiltrate noted in the lung. Her INR was only 1.4. She was started on heparin. She is currently on a nonrebreather mask. She is still has shortness of breath. She stated her lower extremity was swollen when she started taking the prednisone. She denies any calf tenderness. She stated that she has orthopnea, but denies ever having a history of congestive heart failure. She denies any fevers or chills. Denies any chest pain, but she has some chest tightness with shortness of breath. Denies any nausea, vomiting, or abdominal pain . Denies any melena or hematochezia. No dysuria or hematuria. Denies any headache, focal numbness or weakness. PAST MEDICAL HISTORY: 1. Pulmonary embolism about 15 years ago. 2. Chronic atrial fibrillation. 3. T8 fracture. 4. Pulmonary disorder on chronic oxygen. 5. Tremor. PAST SURGICAL HISTORY: 1. Oophorectomy. 2. Embolectomy about 15 years ago. FAMILY HISTORY: No family history of blood clot. SOCIAL HISTORY: Quit tobacco in 1960s. Drinks occasionally. Does live in [facility] and is visiting [facility]. ALLERGIES: NO KNOWN DRUG ALLERGIES. CURRENT MEDICATIONS: 1. Heparin. 2. Warfarin. 3. Tadalafil. 4. Diltiazem. 5. Vitamin D3. 6. Betapace. 7. Azithromycin. 8. Methylprednisolone. 9. Ceftriaxone. 10. Guaifenesin. 11. Lasix. 12. Potassium. 13. Protonix. REVIEW OF SYSTEMS: CONSTITUTIONAL: As above. EYES: Negative. ENT: Negative. CARDIOVASCULAR: As above. RESPIRATORY: As above. GASTROINTESTINAL: Denies any nausea, vomiting, diarrhea or abdominal pains. Denies melena or hematochezia. GENITOURINARY: No dysuria or hematuria. MUSCULOSKELETAL: Negative. HEMATOLOGIC: As above. ENDOCRINE: Negative. DERMATOLOGIC: Negative. PSYCHIATRIC: Negative. NEUROLOGIC: Negative. PHYSICAL EXAMINATION: VITAL SIGNS: Temperature 98, blood pressure 128/59, O2 saturation 92% on nonrebreather mask. HEENT: Atraumatic, normocephalic. Pupils are equal, round, reactive to light. Oropharynx dry mucosa. NECK: No thyromegaly. No palpable mass. LYMPHATIC: No palpable cervical, clavicular, axillary or inguinal lymph nodes. CARDIOVASCULAR: Irregularly, S1, S2. LUNGS: Diffuse crackles. ABDOMEN: Soft, nontender. Cannot palpate liver or spleen. EXTREMITIES: Trace ankle edema on the left side. No calf tenderness. SKIN: Hyperpigmentation bilateral lower extremities. NEUROLOGIC: Nonfocal. LABORATORY DATA: WBC 6.9, hemoglobin 11.5, platelet 124,000. Creatinine 10.86. BNP of 369. ASSESSMENT AND PLAN: 1. Recurrent pulmonary embolism. She had a large pulmonary embolism about 15 years ago requiring embolectomy and she has been on Coumadin since that time. She stated that her Coumadin dose was reduced from 2 mg to 1 mg about 4 weeks ago because she was started on prednisone. When she presented to the hospital, her INR was only 1.4. CT angiogram showed 2 right lower lobe segmental branch emboli. I do not think that she has failed Coumadin. She was started on heparin and Coumadin was also started. A lower extremity ultrasound is pending. Agree with the plan to continue heparin and bridge her to Coumadin. 2. Respiratory distress. She has a history of respiratory insufficiency and has been on chronic oxygen. The patient is not able to provide specific details of her pulmonary disorder. She is taking a medication for pulmonary hypertension. Her CT angiogram showed diffuse interstitial infiltrate and cardiomegaly. Her shortness of breath may be due to pulmonary edema. She is currently on a diuretic. She is awaiting a pulmonology evaluation. The pulmonary embolism is rather small and I doubt that it is causing her significant respiratory insufficiency. 3. 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 She stated that her platelet count was very low a few weeks ago and she was started on prednisone about 5 weeks ago. The prednisone was tapered off a week ago. On presentation, her platelet count was 126,000. 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 She is currently on steroids for her respiratory insufficiency. We will need to monitor the platelet count closely. 4. Chronic atrial fibrillation. 5. Chronic tremor. RECOMMENDATIONS: 1. Agree with continuing heparin and bridge her to Coumadin. 2. Await lower extremity ultrasound. 3. Monitor CBC and platelet count 4. Await pulmonology evaluation. Thank you, Dr. Schaeffer, for asking me to see this patient. MD MAREN Rajan/ARMANDO , 12:43 PM , 01:30 PM MARIAN
[2018-02-09] MEDS: cefTRIAXone INJ 1,000 MG in SODIUM CHLORIDE 0.9% INJ 100 ML IV SCH (13:31)
[2018-02-09] MEDS: RESP: ALBUTEROL 2.5 MG/IPRATROPIUM 0.5 MG NEB (SCH) INH ×3 (13:31→21:49)
--- NOTE | 2018-02-09 13:51 | ECHRPT ---
Indication: PE CONCLUSIONS Normal left ventricular size. Normal left ventricular size. Wall thickness is normal. The left ventricular systolic function is normal with an estimated ejection fraction in the range of 55-60%. A pacemaker wire is noted. The right ventriclar size is upper limits of normal. Mitral annular calcification is present. Moderate mitral valve regurgitation. There is severe tricuspid regurgitation. There is estimated severe pulmonary hypertension present ( 71 mmHg). Mild pulmonary valve regurgitation. BP: / HR: Rhythm: MEASUREMENTS (Male / Female) Normal Values Technical Quality: 2D ECHO LV Diastolic Diameter PLAX 4.0 cm 4.2 - 5.9 / 3.9 - 5.3 cm LV Systolic Diameter PLAX 2.5 cm IVS Diastolic Thickness 1.0 cm 0.6 - 1.0 / 0.6 - 0.9 cm LVPW Diastolic Thickness 0.6 cm 0.6 - 1.0 / 0.6 - 0.9 cm LV Relative Wall Thickness 0.4 LA Systolic Diameter LX 4.6 cm 3.0 - 4.0 / 2.7 - 3.8 cm DOPPLER MV Peak Velocity 137.0 cm/s MV Peak Gradient 7.5 mmHg MV Mean Velocity 73.8 cm/s MV Mean Gradient 3.0 mmHg MR Peak Velocity 557.0 cm/s MR Peak Gradient 124.1 mmHg Mitral E Point Velocity 91.9 cm/s Mitral A Point Velocity 71.6 cm/s Mitral E to A Ratio 1.3 TR Peak Velocity 422.0 cm/s TR Peak Gradient 71.2 mmHg Right Atrial Pressure 5.0 mmHg Pulmonary Artery Systolic Pressu 76.2 mmHg Right Ventricular Systolic Press 76.2 mmHg FINDINGS LEFT VENTRICLE Normal left ventricular size. Normal left ventricular size. Wall thickness is normal. The left ventricular systolic function is normal with an estimated ejection fraction in the range of 55-60%. RIGHT VENTRICLE A pacemaker wire is noted. The right ventriclar size is upper limits of normal. LEFT ATRIUM The left atrial size is normal. RIGHT ATRIUM The right atrial size is normal. ATRIAL SEPTUM Normal atrial septal thickness without atrial level shunting by limited color doppler interrogation. AORTA The aortic root and proximal ascending aorta are normal in size on limited imaging. MITRAL VALVE Mitral annular calcification is present. Moderate mitral valve regurgitation. AORTIC VALVE Trileaflet aortic valve. No aortic valve stenosis or regurgitation. TRICUSPID VALVE There is severe tricuspid regurgitation. There is estimated severe pulmonary hypertension present ( 71 mmHg). PULMONARY VALVE Mild pulmonary valve regurgitation. VESSELS The inferior vena cava is normal in size. PERICARDIUM No pericardial effusion. Girma Brock MD, FACC (Electronically Signed) Final Date:09 February 2018 13:50
[2018-02-09] MEDS: AZITHROMYCIN INJ 500 MG in SODIUM CHLOR 0.9% 250 ML INJ 250 ML IV SCH (14:15)
[2018-02-09] MEDS ORDERED: WARFARIN SOD 3 MG TAB PO SCH (16:00)
[2018-02-09] MEDS: WARFARIN SOD 4 MG TAB PO SCH (17:36)
[2018-02-09] MEDS: SOTALOL HCL 80 MG TAB PO SCH ×2 (17:47→21:59)
[2018-02-09] MEDS: CHOLECALCIFEROL (VIT D3) 5000 UNIT CAP PO SCH (17:47)
--- NOTE | 2018-02-09 20:24 | MB ---
cc: Renuka Grayson MD DATE: 02/09/2018 REASON FOR CONSULTATION: Respiratory failure, pulmonary embolism, and chronic respiratory failure. HISTORY OF PRESENT ILLNESS: Mrs. Cottrell is an 87-year-old female who is visiting from [place]. The patient was admitted with increasing shortness of breath and worsening respiratory failure. She does have chronic respiratory failure on home oxygen therapy, apparently for underlying pulmonary fibrosis. She does have bilateral lung infiltrates by a CT scan of the chest as well as 2 recurrent pulmonary emboli, small in size, in the right lower lobe. The patient has been on Coumadin therapy, which was lowered after starting prednisone for thrombocytopenia, which seems improved. Her current platelets are at 126,000. The patient is difficult to obtain history from at present; she is on oxygen therapy by nonrebreathing mask. She as well is a DNR status at this time. PAST MEDICAL HISTORY: 1. Pulmonary embolism 15 years ago, on Coumadin therapy long-term. 2. Chronic atrial fibrillation. 3. Chronic tremor. 4. Chronic respiratory failure, oxygen dependent, question pulmonary fibrosis. PAST SURGICAL HISTORY: Had a previous embolectomy 15 years ago for her pulmonary embolism, apparently massive at that time, as well as a previous oophorectomy. SOCIAL HISTORY: Used to smoke; however, has not smoked for over 50 years. Drinks alcohol socially. FAMILY HISTORY: Noncontributory. MEDICATIONS: At home include Coumadin, diltiazem, Betapace, guaifenesin, Lasix, potassium, Protonix. Presently on antibiotic therapy, namely ceftriaxone and Zithromax for possible underlying infection. REVIEW OF SYSTEMS: A 12-point review of systems as per HPI and past history, otherwise negative. PHYSICAL EXAMINATION: GENERAL: The patient is alert. VITAL SIGNS: Temperature 98, pulse 80, respiration 18, blood pressure 130/60, oxygen saturation 94% on nonrebreathing mask. HEENT: Unremarkable. Eyes without icterus. NECK: Without adenopathy or thyroid enlargement. Central trachea. CHEST: Scattered rhonchi at bases. CARDIAC: PMI distant. Irregularity noted. ABDOMEN: Lax. Bowel sounds audible. EXTREMITIES: No clubbing, cyanosis or edema. LABORATORY DATA: White count 6.9, hemoglobin 11, hematocrit 33, platelets 124,000. Sodium 144, potassium 3.3, BUN 17, creatinine 0.8. Arterial blood gas today: pH 7.47, pCO2 of 40, pO2 of 56 on a partial nonrebreathing mask. IMPRESSION: 1. Hypoxic respiratory failure. 2. Chronic respiratory failure, on home oxygen therapy, question pulmonary fibrosis. 3. Question pneumonia. 4. Pulmonary embolism or recurrent pulmonary embolism. PLAN: The patient requires a higher inspired oxygen fraction. The pulmonary emboli are quite small and may add to her chronic respiratory failure; they do not seem of the significance and gravity to increase her oxygen requirement that much at the present time. An underlying acute infection may be a possibility as well, and indeed, the patient could benefit from antibiotic therapy, which has already been initiated. Hematology is following regarding the patient's thrombocytopenia. She is on heparin at present, will be placed back on full dose Coumadin therapy within a therapeutic range. Meanwhile, she is DNR status and this obviously will be respected. I do thank you for asking me to partake in Mrs. Cottrell's care. Renuka Grayson MD WWW/ , 07:58 PM , 08:23 PM
[2018-02-09] MEDS: DILTIAZEM-CD 120 MG CAP ER PO SCH (21:59)
[2018-02-10] VITALS (9 sets, daily range): BP systolic 100–132; BP diastolic 56–58; PULSE 63–99; RESP 16–20; TEMP 97.1–97.7; O2SAT 91–97
[2018-02-10] MEDS: methylPREDNISolone SOD SUCC 125 MG/2 ML VIAL IV PUSH SCH ×5 (00:40→22:39)
[2018-02-10] MEDS: RESP: ALBUTEROL 2.5 MG/IPRATROPIUM 0.5 MG NEB (SCH) INH ×4 (03:45→20:27)
[2018-02-10 06:26] LABS: HEMATOCRIT 35.3 % (35.0-46.0); HEMOGLOBIN 12.4 GM/DL (11.6-15.3); MEAN CELL VOLUME 93.1 FL (80.0-100.0); MEAN CORPUSCULAR HEMOGLOBIN 32.6 PG (27.0-34.0); MEAN PLATELET VOLUME 9.9 FL (7.0-11.0); PLATELET COUNT 137 TH/MM3 (150-450); RED BLOOD COUNT 3.79 MIL/MM3 (4.00-5.30); RED CELL DISTRIBUTION WIDTH 16.3 % (11.6-17.2); WHITE BLOOD COUNT 3.8 TH/MM3 (4.0-11.0)
[2018-02-10 07:00] LABS: INTERNATIONAL NORMALIZED RATIO 1.5 RATIO; PROTHROMBIN TIME - PATIENT 14.9 SEC (9.8-11.6)
[2018-02-10] MEDS ORDERED: TADALAFIL 20 MG PO SCH (09:00)
[2018-02-10] MEDS: PANTOPRAZOLE SOD 40 MG DELAYED RELEASE TAB PO SCH (09:22)
[2018-02-10] MEDS: DOCUSATE SODIUM 50 MG/SENNA 8.6 MG TAB PO SCH ×2 (09:22→21:00)
[2018-02-10] MEDS: POTASSIUM CHLORIDE 20 MEQ CONTROLLED RELEASE TAB PO SCH (09:22)
[2018-02-10] MEDS: FUROSEMIDE 20 MG TAB PO SCH (09:22)
[2018-02-10] MEDS: SOTALOL HCL 80 MG TAB PO SCH ×2 (09:22→22:38)
[2018-02-10] MEDS: guaiFENesin E.R. 600 MG TAB PO SCH ×2 (09:23→22:38)
[2018-02-10] MEDS: SODIUM CHLORIDE 0.9% FLUSH 10 ML FLUSH IV FLUSH SCH ×4 (09:23→22:40)
[2018-02-10] MEDS: DILTIAZEM-CD 240 MG CAP ER PO SCH (09:23)
[2018-02-10] MEDS: CHOLECALCIFEROL (VIT D3) 5000 UNIT CAP PO SCH (09:23)
--- NOTE | 2018-02-10 09:28 | PD.ONC.PN ---
Subjective Subjective Remarks Afebrile overnight. patient resting in bed. on NRB mask. she is dyspneic if she exerts herself. No complaints. her heparin was held this AM due to ptt of >90. however, clinically there is no report of bleeding. Objective Data Date Time Temp Pulse Resp B/P (MAP) Pulse Ox O2 Delivery O2 Flow Rate FiO2 02/10/18 08:35 96 Partial Rebreather 13.00 02/10/18 08:00 97.7 70 18 127/58 (81) 93 02/10/18 04:00 97.1 73 16 132/56 (81) 92 02/10/18 00:00 97.1 63 16 121/56 (77) 94 02/09/18 20:00 97.2 66 16 125/70 (88) 93 02/09/18 19:10 95 Non-Rebreather 11.00 02/09/18 16:00 98.2 88 18 126/58 (80) 91 02/09/18 16:00 81 02/09/18 15:23 95 Non-Rebreather 15.00 02/09/18 15:23 95 Non-Rebreather 15.00 02/09/18 14:20 87 Partial Rebreather 15.00 02/09/18 12:00 98.0 77 18 128/59 (82) 92 02/09/18 12:00 70 Result Diagram: 02/10/18 0556 02/08/18 1230 Laboratory Results Laboratory Tests Test 02/09/18 14:15 02/09/18 19:30 02/10/18 05:56 Blood Gas Puncture Site LT RADIAL Blood Gas Patient Temperature 98.6 Blood Gas HCO3 28 mmol/L Blood Gas Base Excess 4.5 mmol/L Blood Gas Oxygen Saturation 87 % Arterial Blood pH 7.47 Arterial Blood Partial Pressure CO2 40 mmHg Arterial Blood Partial Pressure O2 56 mmHg Arterial Blood Oxygen Content 14.7 Vol % Arterial Blood Carboxyhemoglobin 1.9 % Arterial Blood Methemoglobin 0.8 % Blood Gas Hemoglobin 12.0 G/DL Oxygen Delivery Device Partial Rebreather Lab Scanned Report Lab Reports - Other [id number] White Blood Count 3.8 TH/MM3 Red Blood Count 3.79 MIL/MM3 Hemoglobin 12.4 GM/DL Hematocrit 35.3 % Mean Corpuscular Volume 93.1 FL Mean Corpuscular Hemoglobin 32.6 PG Mean Corpuscular Hemoglobin Concent 35.0 % Red Cell Distribution Width 16.3 % Platelet Count 137 TH/MM3 Mean Platelet Volume 9.9 FL Prothrombin Time 14.9 SEC Prothromb Time International Ratio 1.5 RATIO Activated Partial Thromboplast Time 91.3 SEC Culture Results Microbiology Date/Time Source Procedure Growth Status 02/08/18 12:30 Blood Peripheral Aerobic Blood Culture - Preliminary NO GROWTH IN 1 DAY Resulted 02/08/18 12:30 Blood Peripheral Anaerobic Blood Culture - Preliminary NO GROWTH IN 1 DAY Resulted 02/08/18 12:30 Blood Peripheral Aerobic Blood Culture - Preliminary NO GROWTH IN 1 DAY Resulted 02/08/18 12:30 Blood Peripheral Anaerobic Blood Culture - Preliminary NO GROWTH IN 1 DAY Resulted Administered Medications Medications (Trade) Dose Ordered Sig/Shukri Route PRN Reason Start Time Stop Time Status Last Admin Dose Admin Heparin Sodium/ Dextrose 250 ml @ 12 mls/hr TITRATE PRN IV Coagulation Management 02/08/18 15:15 02/09/18 13:22 Sodium Chloride (NS Flush) 2 ml BID IV FLUSH 02/08/18 21:00 02/08/18 21:43 Senna/Docusate Sodium (Stefany-Colace) 1 tab BID PO 02/08/18 21:00 02/09/18 21:59 Albuterol/ Ipratropium (Duoneb Neb) 1 ampule Q6HR NEB INH 02/09/18 11:30 02/10/18 08:35 Methylprednisolone Sodium Succinate (SoluMEDROL INJ) 60 mg Q6H IV PUSH 02/09/18 12:00 02/10/18 06:09 Ceftriaxone Sodium 1000 mg/ Sodium Chloride 100 ml @ 200 mls/hr Q24H IV 02/09/18 12:00 02/09/18 13:31 Azithromycin 500 mg/Sodium Chloride 250 ml @ 250 mls/hr Q24H IV 02/09/18 13:00 02/09/18 14:15 Guaifenesin (Mucinex Er) 600 mg BID PO 02/09/18 12:00 02/09/18 21:58 Cholecalciferol (Vitamin D3) 5,000 units DAILY PO 02/09/18 14:00 02/09/18 17:47 Diltiazem HCl (Cardizem Cd) 240 mg DAILY PO 02/09/18 12:00 02/09/18 13:13 Diltiazem HCl (Cardizem Cd) 120 mg HS PO 02/09/18 21:00 02/09/18 21:59 Furosemide (Lasix) 20 mg DAILY PO 02/09/18 12:00 02/09/18 13:14 Potassium Chloride (KCl) 20 meq DAILY PO 02/09/18 12:00 02/09/18 13:14 Pantoprazole Sodium (Protonix) 40 mg DAILY PO 02/09/18 12:00 02/09/18 13:14 Sotalol HCl (Betapace) 120 mg BID PO 02/09/18 14:00 02/09/18 21:59 Warfarin Sodium (Coumadin) 4 mg DAILY@1600 PO 02/09/18 16:00 02/09/18 17:36 Objective Remarks GENERAL: pleasant elderly female, sitting up in bed, on NRB mask. SKIN: Warm and dry. HEAD: Normocephalic. EYES: No injection or drainage. NECK: Supple, trachea midline. CARDIOVASCULAR: Regular rate and rhythm RESPIRATORY: Breath sounds equal bilaterally. No accessory muscle use. GASTROINTESTINAL: Abdomen soft, non-tender, nondistended. EXTREMITIES: No cyanosis NEUROLOGICAL: awake and alert. normal speech. moving all extremities. 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 The prednisone was tapered off a week ago. --is currently on steroids for respiratory condition --plan to monitor platelet count. (3) Shortness of breath ICD Codes: R06.02 - Shortness of breath Status: Acute Plan: ++history of respiratory insufficiency and has been on chronic oxygen. - ->not able to provide specific details of her pulmonary disorder. --on medication for pulmonary hypertension. --CT angiogram showed diffuse interstitial infiltrate and cardiomegaly. shortness of breath may be due to pulmonary edema. --currently on a diuretic. --pulmonary embolism is rather small and I doubt that it is causing her significant respiratory insufficiency. --echo showed severe TR and pulmonary hypertension Assessment 87y/o female admitted with recurrent pulmonary embolism. history of pulmonary embolism about 15 years ago requiring embolectomy at that time. has been on Coumadin since that time. history of chronic atrial fibrillation. 5 weeks ago, she was started on prednisone because her platelet count was low and her prednisone was tapered off about a week ago. Pulmonary disorder on chronic oxygen. Tremor. Plan 1. monitor CBC 2. continue heparin-->coumadin Attending Statement The exam, history, and the medical decision-making described in the above note were completed with the assistance of the mid-level provider. I reviewed and agree with the findings presented. I attest that I had a [id number] encounter with the patient on the same day, and personally performed and documented my assessment and findings in the medical record. Still has SOB. No bleeding. Doubt SOB due to the small PE. Continue heparin and bridge to coumadin. Faviola Shane Feb 10, 2018 09:28 Gui Palma MD Feb 10, 2018 12:34
[2018-02-10] MEDS: cefTRIAXone INJ 1,000 MG in SODIUM CHLORIDE 0.9% INJ 100 ML IV SCH (11:43)
--- NOTE | 2018-02-10 12:12 | HHI.PR ---
Subjective Remarks Patient is an 87-year-old female with past medical history of tremors, history of rib fractures/T8 fracture, PE, atrial fibrillation presented to the emergency room with worsening shortness of breath. Patient states this started about a week ago. It progressively got worse to the point that today she told her that she needed to go to the emergency room for further evaluation. She states that she chronically uses oxygen at home and uses about 2.5 L a day. She states that the tremors do affect her speech and that is normal for her. She is from [facility] and is visiting. She is supposed to leave to [place] on Monday. She states that she is on Coumadin, however, her dose was decreased while she was on a prednisone taper. She was put on a prednisone taper by her sinker winder because of low platelet count. She does not know the actual diagnosis however her last platelet which was measured in January of this year was 108. She states she was on the prednisone for 5 weeks and prior to being on prednisone her Coumadin dose was 2 mg p.o. daily, now she is taking 1mg po daily. She denies any chest pain, nausea or vomiting, abdominal pain, burning with urination or increased urinary frequency. She does have some sinus drainage, admits to mild cough related to that. 3 still very short of breath today On nonrebreather mask Needs to load Coumadin Consult pulmonary and consult oncology Needs to continue on the HEPARIN DRIP Discussed with patient and RN and case managed HOME MEDS OBTAINED AND RECONCILED 02-10 patient feels that she is breathing a little better than yesterday remains on oxygen by nonrebreather mask Continue on Coumadin and heparin Seen by pulmonary and oncology Slow improvement Objective Vitals Vital Signs Date Time Temp Pulse Resp B/P (MAP) Pulse Ox O2 Delivery O2 Flow Rate FiO2 02/10/18 09:27 96 Non-Rebreather 15.00 02/10/18 08:35 96 Partial Rebreather 13.00 02/10/18 08:00 97.7 70 18 127/58 (81) 93 02/10/18 04:00 97.1 73 16 132/56 (81) 92 02/10/18 00:00 97.1 63 16 121/56 (77) 94 02/09/18 20:00 97.2 66 16 125/70 (88) 93 02/09/18 19:10 95 Non-Rebreather 11.00 02/09/18 16:00 98.2 88 18 126/58 (80) 91 02/09/18 16:00 81 02/09/18 15:23 95 Non-Rebreather 15.00 02/09/18 15:23 95 Non-Rebreather 15.00 02/09/18 14:20 87 Partial Rebreather 15.00 I/O 02/09/18 02/09/18 02/09/18 02/10/18 02/10/18 02/10/18 07:00 15:00 23:00 07:00 15:00 23:00 Intake Total 142 ml Balance 142 ml Intake IV Total 142 ml # Voids 3 Result Diagram: 02/10/18 0556 02/08/18 1230 Other Results Laboratory Tests Test 02/08/18 12:30 02/08/18 12:55 02/08/18 15:30 02/08/18 23:15 White Blood Count 8.1 TH/MM3 6.9 TH/MM3 Red Blood Count 3.83 MIL/MM3 3.55 MIL/MM3 Hemoglobin 12.3 GM/DL 11.5 GM/DL Hematocrit 36.4 % 33.8 % Mean Corpuscular Volume 94.9 FL 95.3 FL Mean Corpuscular Hemoglobin 32.2 PG 32.3 PG Mean Corpuscular Hemoglobin Concent 33.9 % 33.9 % Red Cell Distribution Width 16.5 % 16.6 % Platelet Count 126 TH/MM3 124 TH/MM3 Mean Platelet Volume 10.2 FL 10.1 FL CBC Comment AUTO DIFF Differential Total Cells Counted 100 Neutrophils % (Manual) 50 % Band Neutrophils % 4 % Lymphocytes % 9 % Monocytes % 36 % Basophils % 1 % Neutrophils # (Manual) 4.4 TH/MM3 Differential Comment FINAL DIFF MANUAL Platelet Estimate LOW Platelet Morphology Comment NORMAL Red Cell Morphology Comment NORMAL Prothrombin Time 14.4 SEC Prothromb Time International Ratio 1.4 RATIO Activated Partial Thromboplast Time 27.5 SEC 26.8 SEC 71.3 SEC Blood Urea Nitrogen 17 MG/DL Creatinine 0.86 MG/DL Random Glucose 159 MG/DL Total Protein 6.3 GM/DL Albumin 3.1 GM/DL Calcium Level 8.1 MG/DL Alkaline Phosphatase 55 U/L Aspartate Amino Transf (AST/SGOT) 21 U/L Alanine Aminotransferase (ALT/SGPT) 18 U/L Total Bilirubin 1.1 MG/DL Sodium Level 144 MEQ/L Potassium Level 3.3 MEQ/L Chloride Level 109 MEQ/L Carbon Dioxide Level 27.3 MEQ/L Anion Gap 8 MEQ/L Estimat Glomerular Filtration Rate 62 ML/MIN Total Creatine Kinase 22 U/L Troponin I LESS THAN 0.02 NG/ML B-Type Natriuretic Peptide 369 PG/ML Blood Gas Puncture Site RT RADIAL Blood Gas Patient Temperature 98.6 Blood Gas HCO3 27 mmol/L Blood Gas Base Excess 3.1 mmol/L Blood Gas Oxygen Saturation 91 % Arterial Blood pH 7.47 Arterial Blood Partial Pressure CO2 37 mmHg Arterial Blood Partial Pressure O2 65 mmHG Arterial Blood Oxygen Content 14.5 Vol % Arterial Blood Carboxyhemoglobin 2.2 % Arterial Blood Methemoglobin 0.5 % Blood Gas Hemoglobin 11.4 G/DL Oxygen Delivery Device NASAL CANNULA Blood Gas Liter Flow 4 L/M Test 02/09/18 07:49 02/09/18 14:15 02/09/18 19:30 02/10/18 05:56 Prothrombin Time 14.3 SEC 14.9 SEC Prothromb Time International Ratio 1.4 RATIO 1.5 RATIO Activated Partial Thromboplast Time 68.9 SEC 91.3 SEC Blood Gas Puncture Site LT RADIAL Blood Gas Patient Temperature 98.6 Blood Gas HCO3 28 mmol/L Blood Gas Base Excess 4.5 mmol/L Blood Gas Oxygen Saturation 87 % Arterial Blood pH 7.47 Arterial Blood Partial Pressure CO2 40 mmHg Arterial Blood Partial Pressure O2 56 mmHg Arterial Blood Oxygen Content 14.7 Vol % Arterial Blood Carboxyhemoglobin 1.9 % Arterial Blood Methemoglobin 0.8 % Blood Gas Hemoglobin 12.0 G/DL Oxygen Delivery Device Partial Rebreather Lab Scanned Report Lab Reports - Other [id number] White Blood Count 3.8 TH/MM3 Red Blood Count 3.79 MIL/MM3 Hemoglobin 12.4 GM/DL Hematocrit 35.3 % Mean Corpuscular Volume 93.1 FL Mean Corpuscular Hemoglobin 32.6 PG Mean Corpuscular Hemoglobin Concent 35.0 % Red Cell Distribution Width 16.3 % Platelet Count 137 TH/MM3 Mean Platelet Volume 9.9 FL Test 02/10/18 10:50 Activated Partial Thromboplast Time 43.7 SEC Imaging Last Impressions Lower Extremity Ultrasound 02/09/18 0000 Signed Impressions: Service Date/Time: Friday, February 09, 2018 11:45 - CONCLUSION: Normal examination. Ameya Antoine MD Chest X-Ray 02/09/18 0000 Signed Impressions: Service Date/Time: Friday, February 09, 2018 01:18 - CONCLUSION: Modest worsening bibasilar consolidation. Rom Moses MD CT Angiography 02/08/18 1353 Signed Impressions: Service Date/Time: January 14:33 - CONCLUSION: 1. There is evidence of pulmonary emboli in 2 segmental branches of the right lower lung. 2. Scattered diffuse interstitial infiltrates bilaterally. 3. Atelectasis in the right lung base. 4. Diffuse cardiomegaly. Niko Haq MD Objective Remarks GENERAL: Patient is awake alert and oriented talkative and cooperative having difficulty getting her words out still very short of breath remains on a nonrebreather mask appears to be in moderate distress SKIN: Warm and dry. HEAD: Atraumatic. Normocephalic. EYES: Pupils equal and round. No scleral icterus. No injection or drainage. Extraocular muscles intact glasses ENT: No nasal bleeding or discharge. Mucous membranes pink and moist. Tongue is midline NECK: Trachea midline. No JVD. Supple CARDIOVASCULAR: Regular rate and rhythm. S1-S2 no S3 or S4 RESPIRATORY: Mild accessory muscle use. . Breath sounds equal bilaterally. Decreased breath sounds bilaterally with some scattered rhonchi GASTROINTESTINAL: Abdomen soft, non-tender, nondistended. Hepatic and splenic margins not palpable. MUSCULOSKELETAL: Extremities without clubbing, cyanosis, or edema. No obvious deformities. NEUROLOGICAL: Awake and alert. No obvious cranial nerve deficits. Motor grossly within normal limits. 4 out of 5 muscle strength in the arms and legs. Normal speech. PSYCHIATRIC: Appropriate mood and affect; insight and judgment normal. Medications and IVs Current Medications Sodium Chloride (NS Flush) 2 ml UNSCH PRN IVF FLUSH AFTER USING IV ACCESS; Start 02/08/18 at 12:30; Stop 02/08/18 at 15:44; Status DC Iohexol (Omnipaque 350 Inj) 73 ml STK-MED ONCE IVCONTRAST Last administered on 02/08/18at 14:35; Start 02/08/18 at 14:35; Stop 02/08/18 at 14:37; Status DC Heparin Sodium (Porcine) (Heparin Inj) 5,000 units NOW STAT IV PUSH ; Start at 15:04; Stop 02/08/18 at 15:05; Status DC Heparin Sodium (Porcine) (Heparin Inj) 5,000 units UNSCH PRN IV PUSH APTT LESS THAN 25; Start 02/08/18 at 21:15 Heparin Sodium (Porcine) (Heparin Inj) 2,500 units UNSCH PRN IV PUSH APTT 25 TO 39; Start 02/08/18 at 21:15 Heparin Sodium/ Dextrose 250 ml @ 12 mls/hr TITRATE PRN IV Coagulation Management Last administered on 02/09/18at 13:22; Start 02/08/18 at 15:15 Sodium Chloride (NS Flush) 2 ml UNSCH PRN IV FLUSH FLUSH AFTER USING IV ACCESS ; Start 02/08/18 at 15:45 Sodium Chloride (NS Flush) 2 ml BID IV FLUSH Last administered on 02/10/18at 09: 23; Start 02/08/18 at 21:00 Ondansetron HCl (Zofran Inj) 4 mg Q6H PRN IVP NAUSEA OR VOMITING; Start at 15:45 Naloxone HCl (Narcan Inj) 0.4 mg UNSCH PRN IV PUSH SEE LABEL COMMENTS; Start at 15:45 Senna/Docusate Sodium (Stefany-Colace) 1 tab BID PO Last administered on at 09:22; Start 02/08/18 at 21:00 Magnesium Hydroxide (Milk Of Magnesia Liq) 30 ml Q12H PRN PO Mild constipation ; Start 02/08/18 at 15:45 Sennosides (Senokot) 17.2 mg Q12H PRN PO Moderate constipation; Start 02/08/18 at 15:45 Bisacodyl (Dulcolax Supp) 10 mg DAILY PRN RECTAL SEVERE CONSITIPATION; Start at 15:45 Lactulose (Lactulose Liq) 30 ml DAILY PRN PO SEVERE CONSITIPATION; Start at 15:45 Heparin Sodium (Porcine) (Heparin Inj) 5,000 units NOW STAT IV PUSH Last administered on 02/08/18at 17:20; Start 02/08/18 at 17:14; Stop 02/08/18 at 17:15 ; Status DC Diltiazem HCl (Cardizem Cd) 120 mg HS PO Last administered on 02/08/18at 21:43; Start 02/08/18 at 21:00; Stop 02/09/18 at 12:09; Status DC Albuterol/ Ipratropium (Duoneb Neb) 1 ampule Q4HR NEB PRN NEB WHEEZING Last administered on 02/09/18at 04:41; Start 02/08/18 at 21:45; Stop 02/09/18 at 12:09 ; Status DC Sodium Chloride (NS Flush) 2 ml BID IV FLUSH ; Start 02/09/18 at 21:00 Sodium Chloride (NS Flush) 2 ml UNSCH PRN IV FLUSH FLUSH AFTER USING IV ACCESS ; Start 02/09/18 at 11:30 Albuterol/ Ipratropium (Duoneb Neb) 1 ampule Q4HR NEB PRN INH SOB/COUGH; Start 02/09/18 at 11:30 Albuterol/ Ipratropium (Duoneb Neb) 1 ampule Q6HR NEB INH Last administered on 02/10/18at 08:35; Start 02/09/18 at 11:30 Albuterol Sulfate (Albuterol Neb) 2.5 mg Q2HR NEB PRN INH SHORTNESS OF BREATH; Start 02/09/18 at 11:30 Methylprednisolone Sodium Succinate (SoluMEDROL INJ) 60 mg Q6H IV PUSH Last administered on 02/10/18at 11:43; Start 02/09/18 at 12:00 Ceftriaxone Sodium 1000 mg/ Sodium Chloride 100 ml @ 200 mls/hr Q24H IV Last administered on 02/10/18at 11:43; Start 02/09/18 at 12:00 Azithromycin 500 mg/Sodium Chloride 250 ml @ 250 mls/hr Q24H IV Last administered on 02/09/18at 14:15; Start 02/09/18 at 13:00 Guaifenesin (Mucinex Er) 600 mg BID PO Last administered on 02/10/18at 09:23; Start 02/09/18 at 12:00 Warfarin Sodium (Coumadin) 3 mg DAILY@16 PO ; Start 02/09/18 at 16:00; Stop at 16:00; Status DC Cholecalciferol (Vitamin D3) 5,000 units DAILY PO Last administered on 09:23; Start 02/09/18 at 14:00 Diltiazem HCl (Cardizem Cd) 240 mg DAILY PO Last administered on 02/10/18 09: 23; Start 02/09/18 at 12:00 Diltiazem HCl (Cardizem Cd) 120 mg HS PO Last administered on 02/09/18at 21:59; Start 02/09/18 at 21:00 Furosemide (Lasix) 20 mg DAILY PO Last administered on 02/10/18 09:22; Start 02/09/18 at 12:00 Potassium Chloride (KCl) 20 meq DAILY PO Last administered on 02/10/18 09:22; Start 02/09/18 at 12:00 Pantoprazole Sodium (Protonix) 40 mg DAILY PO Last administered on 02/10/18 09 :22; Start 02/09/18 at 12:00 Sotalol HCl (Betapace) 120 mg BID PO Last administered on 02/10/18 09:22; Start 02/09/18 at 14:00 Patient Own Medication PT OWN MED: (Tadalafil (Pulmon... DAILY PO ; Start at 09:00; Status Future Hold Warfarin Sodium (Coumadin) 4 mg DAILY@1600 PO Last administered on 02/09/18 17 :36; Start 02/09/18 at 16:00 A/P Assessment and Plan Pulmonary emboli-- CTA showed PE into segmental branches of the right lower lung. Patient started on a heparin drip. Check 2D echo to rule out any cardiac strain. resuming coumadin to 4mg po daily (dose prior to cutting it in half while on prednisone) tomorrow or discuss use of newer anticoagulants. Per pt, she was doing well with Coumadin however on admission INR was 1.4. continue supplemental oxygen. Currently on 5 L. ABG showed a pH of 7.47, HCO3 of 27, CO2 of 37. Monitor pt closely. Pt wishes to be DNR. Atrial fibrillation: Pt only has her pill box and doesn't have her med bottles and doesn't remember the actual dose or what meds she takes. She states she is on sotalol and cardizem. She did have a bottle of cardizem CD 120mg po qhs which apparently she started taking 2 nights ago but states she also takes cardizem in AM but doesn't remember dose. She also doesn't remember dose of sotalol. I have requested that RN bring pills to pharmacy and see if the pharmacist can assist us w pt's meds. ON DILTIAZEM 120MG IN PM AND 240MG IN AM RELOAD COUMADIN HEPARIN DRIP GERD ON PROTONIX ON 2 LITERS OXYGEN AT ALL TIMES SOTALOL 120MG BID VITAMIN D3 Pneumonia we will treat with Rocephin and Zithromax Mucinex duo nebs incentive spirometry and steroids tremors: chronic and stable. PULMONARY HYPERTENSION ON ADCIRCA 20MG DAILY- RESUME RESUME LASIX AND POTASSIUM REPLACE POTASSIUM NEEDED Ultrasounds of bilateral lower extremities negative for DVT DVT proph: heparin gtt. Code Status Discharge Planning Not cleared for discharge Seen by pulmonary and oncology Evangelista Schaeffer DO Feb 10, 2018 12:12
[2018-02-10] MEDS: AZITHROMYCIN INJ 500 MG in SODIUM CHLOR 0.9% 250 ML INJ 250 ML IV SCH (13:00)
--- NOTE | 2018-02-10 16:28 | HHI.PR ---
Subjective Remarks alert less SOB Objective GENERAL: SKIN: Warm and dry. HEAD: Atraumatic. Normocephalic. EYES: Pupils equal and round. No scleral icterus. No injection or drainage. ENT: No nasal bleeding or discharge. Mucous membranes pink and moist. NECK: Trachea midline. No JVD. CARDIOVASCULAR: Regular rate and rhythm. RESPIRATORY: No accessory muscle use. Clear to auscultation. Breath sounds equal bilaterally. GASTROINTESTINAL: Abdomen soft, non-tender, nondistended. Hepatic and splenic margins not palpable. MUSCULOSKELETAL: Extremities without clubbing, cyanosis, or edema. No obvious deformities. NEUROLOGICAL: Awake and alert. No obvious cranial nerve deficits. Motor grossly within normal limits. Five out of 5 muscle strength in the arms and legs. Normal speech. PSYCHIATRIC: Appropriate mood and affect; insight and judgment normal. Vital Signs Date Time Temp Pulse Resp B/P (MAP) Pulse Ox O2 Delivery O2 Flow Rate FiO2 02/10/18 16:00 97.7 65 18 109/56 (73) 91 02/10/18 15:13 69 02/10/18 12:00 97.2 71 18 112/56 (74) 93 02/10/18 09:27 96 Non-Rebreather 15.00 02/10/18 08:35 96 Partial Rebreather 13.00 02/10/18 08:00 97.7 70 18 127/58 (81) 93 02/10/18 04:00 97.1 73 16 132/56 (81) 92 02/10/18 00:00 97.1 63 16 121/56 (77) 94 02/09/18 20:00 97.2 66 16 125/70 (88) 93 02/09/18 19:10 95 Non-Rebreather 11.00 I/O 02/09/18 02/09/18 02/09/18 02/10/18 02/10/18 02/10/18 07:00 15:00 23:00 07:00 15:00 23:00 Intake Total 142 ml Balance 142 ml Intake IV Total 142 ml # Voids 3 Result Diagram: 02/10/18 0556 02/08/18 1230 Assessment and Plan Assessment and Plan impression respiratory failure pna pulm fibrosis plan o2 as needed antibx pulmonary toilet increase activity Renuka Grayson MD Feb 10, 2018 16:28
[2018-02-10] MEDS: WARFARIN SOD 4 MG TAB PO SCH (16:40)
[2018-02-10] MEDS: SODIUM CHLORIDE 0.9% FLUSH 10 ML FLUSH IV FLUSH PRN (16:41)
[2018-02-10] MEDS: DILTIAZEM-CD 120 MG CAP ER PO SCH (22:38)
[2018-02-11] VITALS (10 sets, daily range): BP systolic 105–115; BP diastolic 55–72; PULSE 97–125; RESP 18–19; TEMP 97.2–97.6; O2SAT 90–95
[2018-02-11] MEDS: RESP: ALBUTEROL 2.5 MG/IPRATROPIUM 0.5 MG NEB (SCH) INH ×4 (04:00→21:03)
[2018-02-11] MEDS: methylPREDNISolone SOD SUCC 125 MG/2 ML VIAL IV PUSH SCH ×4 (06:09→23:21)
[2018-02-11] MEDS: CHOLECALCIFEROL (VIT D3) 5000 UNIT CAP PO SCH (09:08)
[2018-02-11] MEDS: PANTOPRAZOLE SOD 40 MG DELAYED RELEASE TAB PO SCH (09:08)
[2018-02-11] MEDS: POTASSIUM CHLORIDE 20 MEQ CONTROLLED RELEASE TAB PO SCH (09:08)
[2018-02-11] MEDS: FUROSEMIDE 20 MG TAB PO SCH (09:08)
[2018-02-11] MEDS: guaiFENesin E.R. 600 MG TAB PO SCH ×2 (09:09→23:10)
[2018-02-11] MEDS: DOCUSATE SODIUM 50 MG/SENNA 8.6 MG TAB PO SCH ×2 (09:09→21:00)
[2018-02-11] MEDS: SODIUM CHLORIDE 0.9% FLUSH 10 ML FLUSH IV FLUSH SCH ×4 (09:09→23:12)
[2018-02-11] MEDS: SOTALOL HCL 80 MG TAB PO SCH ×2 (09:09→23:10)
[2018-02-11] MEDS: DILTIAZEM-CD 240 MG CAP ER PO SCH (09:09)
--- NOTE | 2018-02-11 09:26 | PD.ONC.PN ---
Subjective Subjective Remarks Afebrile overnight. patient remains significantly dyspneic even at rest. she remains on NRB. tolerating heparin gtt. no bleeding. Objective Data Date Time Temp Pulse Resp B/P (MAP) Pulse Ox O2 Delivery O2 Flow Rate FiO2 02/11/18 09:14 93 Non-Rebreather 15.00 02/11/18 08:00 97.3 102 18 111/72 (85) 93 02/11/18 05:23 97.2 107 18 113/69 (84) 93 02/11/18 00:21 97.6 100 19 115/62 (79) 95 02/10/18 20:28 95 Non-Rebreather 15.00 02/10/18 20:00 97.3 99 20 100/57 (71) 97 02/10/18 19:22 95 Non-Rebreather 15.00 02/10/18 16:00 97.7 65 18 109/56 (73) 91 02/10/18 15:13 69 02/10/18 12:00 97.2 71 18 112/56 (74) 93 02/10/18 09:27 96 Non-Rebreather 15.00 02/11/18 02/11/18 02/11/18 07:00 15:00 23:00 Intake Total 240 ml Balance 240 ml Result Diagram: 02/10/18 0556 02/08/18 1230 Laboratory Results Laboratory Tests Test 02/10/18 10:50 02/10/18 15:50 02/10/18 22:31 02/10/18 23:47 Activated Partial Thromboplast Time 43.7 SEC 23.7 SEC 148.0 SEC 101.7 SEC Test 02/11/18 01:35 02/11/18 08:45 Activated Partial Thromboplast Time 44.4 SEC Culture Results Microbiology Date/Time Source Procedure Growth Status 02/08/18 12:30 Blood Peripheral Aerobic Blood Culture - Preliminary NO GROWTH IN 2 DAYS Resulted 02/08/18 12:30 Blood Peripheral Anaerobic Blood Culture - Preliminary NO GROWTH IN 2 DAYS Resulted 02/08/18 12:30 Blood Peripheral Aerobic Blood Culture - Preliminary NO GROWTH IN 2 DAYS Resulted 02/08/18 12:30 Blood Peripheral Anaerobic Blood Culture - Preliminary NO GROWTH IN 2 DAYS Resulted Administered Medications Medications (Trade) Dose Ordered Sig/Shukri Route PRN Reason Start Time Stop Time Status Last Admin Dose Admin Heparin Sodium (Porcine) (Heparin Inj) 5,000 units UNSCH PRN IV PUSH APTT LESS THAN 25 02/08/18 21:15 02/10/18 18:49 Heparin Sodium/ Dextrose 250 ml @ 12 mls/hr TITRATE PRN IV Coagulation Management 02/08/18 15:15 02/09/18 13:22 Sodium Chloride (NS Flush) 2 ml UNSCH PRN IV FLUSH FLUSH AFTER USING IV ACCESS 02/08/18 15:45 02/10/18 16:41 Sodium Chloride (NS Flush) 2 ml BID IV FLUSH 02/08/18 21:00 02/11/18 09:09 Senna/Docusate Sodium (Stefany-Colace) 1 tab BID PO 02/08/18 21:00 02/11/18 09:09 Albuterol/ Ipratropium (Duoneb Neb) 1 ampule Q6HR NEB INH 02/09/18 11:30 02/10/18 20:27 Methylprednisolone Sodium Succinate (SoluMEDROL INJ) 60 mg Q6H IV PUSH 02/09/18 12:00 02/11/18 06:09 Ceftriaxone Sodium 1000 mg/ Sodium Chloride 100 ml @ 200 mls/hr Q24H IV 02/09/18 12:00 02/10/18 11:43 Azithromycin 500 mg/Sodium Chloride 250 ml @ 250 mls/hr Q24H IV 02/09/18 13:00 02/10/18 13:00 Guaifenesin (Mucinex Er) 600 mg BID PO 02/09/18 12:00 02/11/18 09:09 Cholecalciferol (Vitamin D3) 5,000 units DAILY PO 02/09/18 14:00 02/11/18 09:08 Diltiazem HCl (Cardizem Cd) 240 mg DAILY PO 02/09/18 12:00 02/11/18 09:09 Diltiazem HCl (Cardizem Cd) 120 mg HS PO 02/09/18 21:00 02/10/18 22:38 Furosemide (Lasix) 20 mg DAILY PO 02/09/18 12:00 02/11/18 09:08 Potassium Chloride (KCl) 20 meq DAILY PO 02/09/18 12:00 02/11/18 09:08 Pantoprazole Sodium (Protonix) 40 mg DAILY PO 02/09/18 12:00 02/11/18 09:08 Sotalol HCl (Betapace) 120 mg BID PO 02/09/18 14:00 02/11/18 09:09 Warfarin Sodium (Coumadin) 4 mg DAILY@1600 PO 02/09/18 16:00 02/10/18 16:40 Objective Remarks GENERAL: pleasant elderly female, upright in bed on NRB mask. SKIN: Warm and dry. HEAD: Normocephalic. EYES: No injection or drainage. NECK: Supple, trachea midline. CARDIOVASCULAR: Regular rate and rhythm RESPIRATORY: diminished at bases, anterior amanda clear. GASTROINTESTINAL: Abdomen soft, non-tender, nondistended. EXTREMITIES: No cyanosis NEUROLOGICAL: awake and alert. normal speech. moving all extremities. 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 The prednisone was tapered off a week ago. --is currently on steroids for respiratory condition --plan to monitor platelet count. (3) Shortness of breath ICD Codes: R06.02 - Shortness of breath Status: Acute Plan: ++history of respiratory insufficiency and has been on chronic oxygen. - ->not able to provide specific details of her pulmonary disorder. --on medication for pulmonary hypertension. --CT angiogram showed diffuse interstitial infiltrate and cardiomegaly. shortness of breath may be due to pulmonary edema. --currently on a diuretic. --pulmonary embolism is rather small and I doubt that it is causing her significant respiratory insufficiency. --echo showed severe TR and pulmonary hypertension Assessment 87y/o female admitted with recurrent pulmonary embolism. history of pulmonary embolism about 15 years ago requiring embolectomy at that time. has been on Coumadin since that time. history of chronic atrial fibrillation. 5 weeks ago, she was started on prednisone because her platelet count was low and her prednisone was tapered off about a week ago. Pulmonary disorder on chronic oxygen. Tremor. Plan 1. stop heparin 2. reduce coumadin dosing Attending Statement The exam, history, and the medical decision-making described in the above note were completed with the assistance of the mid-level provider. I reviewed and agree with the findings presented. I attest that I had a [id number] encounter with the patient on the same day, and personally performed and documented my assessment and findings in the medical record. SOB slightly better. No bleeding. INR therapeutic. Stop heparin and continue to adjust coumadin dose. Faviola Shane Feb 11, 2018 09:26 Gui Palma MD Feb 11, 2018 12:33
[2018-02-11 09:30] LABS: INTERNATIONAL NORMALIZED RATIO 2.5 RATIO; PROTHROMBIN TIME - PATIENT 25.5 SEC (9.8-11.6)
[2018-02-11 09:31] LABS: AUTOMATED NEUTROPHIL # 11.1 TH/MM3 (1.8-7.7); BASOPHIL % 0.1 % (0.0-2.0); HEMATOCRIT 38.9 % (35.0-46.0); LYMPH % 5.3 % (9.0-44.0); LYMPHOCYTE # 0.7 TH/MM3 (1.0-4.8); MEAN CELL VOLUME 93.6 FL (80.0-100.0); MEAN CORPUSCULAR HEMOGLOBIN 31.4 PG (27.0-34.0); MEAN CORPUSCULAR HGB CONC 33.5 % (32.0-36.0); MONO % 5.4 % (0.0-8.0); MONOCYTE # 0.7 TH/MM3 (0-0.9); NEUT % 89.2 % (16.0-70.0); PLATELET COUNT 191 TH/MM3 (150-450); RED BLOOD COUNT 4.15 MIL/MM3 (4.00-5.30); RED CELL DISTRIBUTION WIDTH 16.6 % (11.6-17.2); WHITE BLOOD COUNT 12.4 TH/MM3 (4.0-11.0)
[2018-02-11 09:42] LABS: ALBUMIN 3.1 GM/DL (3.4-5.0); AST (GOT) 19 U/L (15-37); BLOOD UREA NITROGEN 24 MG/DL (7-18); CALCIUM 8.5 MG/DL (8.5-10.1); CHLORIDE 107 MEQ/L (98-107); CREATININE 0.73 MG/DL (0.50-1.00); GLOMERULAR FILTRATION RATE 75 ML/MIN (>89); GLUCOSE,RANDOM 151 MG/DL (74-106); MAGNESIUM 2.1 MG/DL (1.5-2.5); SODIUM (NA) 142 MEQ/L (136-145)
[2018-02-11 09:43] LABS: ALT (GPT) 16 U/L (10-53); PHOSPHORUS 3.4 MG/DL (2.5-4.9)
[2018-02-11 09:45] LABS: ALKALINE PHOSPHATASE 58 U/L (45-117); TOTAL BILIRUBIN ADULT 0.6 MG/DL (0.2-1.0); TOTAL PROTEIN 6.6 GM/DL (6.4-8.2)
[2018-02-11] MEDS: cefTRIAXone INJ 1,000 MG in SODIUM CHLORIDE 0.9% INJ 100 ML IV SCH (10:55)
[2018-02-11] MEDS ORDERED: WARFARIN SOD 1 MG TAB PO ONE (12:30)
--- NOTE | 2018-02-11 12:36 | HHI.PR ---
Subjective Remarks Patient is an 87-year-old female with past medical history of tremors, history of rib fractures/T8 fracture, PE, atrial fibrillation presented to the emergency room with worsening shortness of breath. Patient states this started about a week ago. It progressively got worse to the point that today she told her that she needed to go to the emergency room for further evaluation. She states that she chronically uses oxygen at home and uses about 2.5 L a day. She states that the tremors do affect her speech and that is normal for her. She is from [facility] and is visiting. She is supposed to leave to [place] on Monday. She states that she is on Coumadin, however, her dose was decreased while she was on a prednisone taper. She was put on a prednisone taper by her pharmacy resident because of low platelet count. She does not know the actual diagnosis however her last platelet which was measured in January of this year was 108. She states she was on the prednisone for 5 weeks and prior to being on prednisone her Coumadin dose was 2 mg p.o. daily, now she is taking 1mg po daily. She denies any chest pain, nausea or vomiting, abdominal pain, burning with urination or increased urinary frequency. She does have some sinus drainage, admits to mild cough related to that. 3-30 still very short of breath today On nonrebreather mask Needs to load Coumadin Consult pulmonary and consult oncology Needs to continue on the HEPARIN DRIP Discussed with patient and RN and case managed HOME MEDS OBTAINED AND RECONCILED 3-31 patient feels that she is breathing a little better than yesterday remains on oxygen by nonrebreather mask Continue on Coumadin and heparin Seen by pulmonary and oncology Slow improvement 4-1 STILL SOB REMAINS ON OXYGEN INR IS 2.5 CONTINUE COUMADIN HOLD HEPARIN SLOW IMPROVEMENT DW RN AND PT AND CM AND Objective Vitals Vital Signs Date Time Temp Pulse Resp B/P (MAP) Pulse Ox O2 Delivery O2 Flow Rate FiO2 02/11/18 12:00 97.4 99 18 111/55 (73) 93 02/11/18 11:05 99 02/11/18 10:29 94 Venturi Mask 6.00 50 02/11/18 09:14 93 Non-Rebreather 15.00 02/11/18 08:00 97.3 102 18 111/72 (85) 93 02/11/18 05:23 97.2 107 18 113/69 (84) 93 02/11/18 00:21 97.6 100 19 115/62 (79) 95 02/10/18 20:28 95 Non-Rebreather 15.00 02/10/18 20:00 97.3 99 20 100/57 (71) 97 02/10/18 19:22 95 Non-Rebreather 15.00 02/10/18 16:00 97.7 65 18 109/56 (73) 91 02/10/18 15:13 69 I/O 02/10/18 02/10/18 02/10/18 02/11/18 02/11/18 02/11/18 07:00 15:00 23:00 07:00 15:00 23:00 Intake Total 240 ml Balance 240 ml Intake Oral 240 ml # Voids 3 2 # Bowel Movements 1 Result Diagram: 02/11/18 0845 02/11/18 0845 Other Results Laboratory Tests Test 02/08/18 12:55 02/08/18 15:30 02/08/18 23:15 02/09/18 07:49 Blood Gas Puncture Site RT RADIAL Blood Gas Patient Temperature 98.6 Blood Gas HCO3 27 mmol/L Blood Gas Base Excess 3.1 mmol/L Blood Gas Oxygen Saturation 91 % Arterial Blood pH 7.47 Arterial Blood Partial Pressure CO2 37 mmHg Arterial Blood Partial Pressure O2 65 mmHG Arterial Blood Oxygen Content 14.5 Vol % Arterial Blood Carboxyhemoglobin 2.2 % Arterial Blood Methemoglobin 0.5 % Blood Gas Hemoglobin 11.4 G/DL Oxygen Delivery Device NASAL CANNULA Blood Gas Liter Flow 4 L/M White Blood Count 6.9 TH/MM3 Red Blood Count 3.55 MIL/MM3 Hemoglobin 11.5 GM/DL Hematocrit 33.8 % Mean Corpuscular Volume 95.3 FL Mean Corpuscular Hemoglobin 32.3 PG Mean Corpuscular Hemoglobin Concent 33.9 % Red Cell Distribution Width 16.6 % Platelet Count 124 TH/MM3 Mean Platelet Volume 10.1 FL Activated Partial Thromboplast Time 26.8 SEC 71.3 SEC 68.9 SEC Prothrombin Time 14.3 SEC Prothromb Time International Ratio 1.4 RATIO Test 02/09/18 14:15 02/09/18 19:30 02/10/18 05:56 02/10/18 10:50 Blood Gas Puncture Site LT RADIAL Blood Gas Patient Temperature 98.6 Blood Gas HCO3 28 mmol/L Blood Gas Base Excess 4.5 mmol/L Blood Gas Oxygen Saturation 87 % Arterial Blood pH 7.47 Arterial Blood Partial Pressure CO2 40 mmHg Arterial Blood Partial Pressure O2 56 mmHg Arterial Blood Oxygen Content 14.7 Vol % Arterial Blood Carboxyhemoglobin 1.9 % Arterial Blood Methemoglobin 0.8 % Blood Gas Hemoglobin 12.0 G/DL Oxygen Delivery Device Partial Rebreather Lab Scanned Report Lab Reports - Other [id number] White Blood Count 3.8 TH/MM3 Red Blood Count 3.79 MIL/MM3 Hemoglobin 12.4 GM/DL Hematocrit 35.3 % Mean Corpuscular Volume 93.1 FL Mean Corpuscular Hemoglobin 32.6 PG Mean Corpuscular Hemoglobin Concent 35.0 % Red Cell Distribution Width 16.3 % Platelet Count 137 TH/MM3 Mean Platelet Volume 9.9 FL Prothrombin Time 14.9 SEC Prothromb Time International Ratio 1.5 RATIO Activated Partial Thromboplast Time 91.3 SEC 43.7 SEC Test 02/10/18 15:50 02/10/18 22:31 02/10/18 23:47 02/11/18 01:35 Activated Partial Thromboplast Time 23.7 SEC 148.0 SEC 101.7 SEC 44.4 SEC Test 02/11/18 08:45 White Blood Count 12.4 TH/MM3 Red Blood Count 4.15 MIL/MM3 Hemoglobin 13.0 GM/DL Hematocrit 38.9 % Mean Corpuscular Volume 93.6 FL Mean Corpuscular Hemoglobin 31.4 PG Mean Corpuscular Hemoglobin Concent 33.5 % Red Cell Distribution Width 16.6 % Platelet Count 191 TH/MM3 Mean Platelet Volume 10.0 FL Neutrophils (%) (Auto) 89.2 % Lymphocytes (%) (Auto) 5.3 % Monocytes (%) (Auto) 5.4 % Eosinophils (%) (Auto) 0.0 % Basophils (%) (Auto) 0.1 % Neutrophils # (Auto) 11.1 TH/MM3 Lymphocytes # (Auto) 0.7 TH/MM3 Monocytes # (Auto) 0.7 TH/MM3 Eosinophils # (Auto) 0.0 TH/MM3 Basophils # (Auto) 0.0 TH/MM3 CBC Comment DIFF FINAL Differential Comment Prothrombin Time 25.5 SEC Prothromb Time International Ratio 2.5 RATIO Activated Partial Thromboplast Time 37.6 SEC Blood Urea Nitrogen 24 MG/DL Creatinine 0.73 MG/DL Random Glucose 151 MG/DL Total Protein 6.6 GM/DL Albumin 3.1 GM/DL Calcium Level 8.5 MG/DL Phosphorus Level 3.4 MG/DL Magnesium Level 2.1 MG/DL Alkaline Phosphatase 58 U/L Aspartate Amino Transf (AST/SGOT) 19 U/L Alanine Aminotransferase (ALT/SGPT) 16 U/L Total Bilirubin 0.6 MG/DL Sodium Level 142 MEQ/L Potassium Level 3.9 MEQ/L Chloride Level 107 MEQ/L Carbon Dioxide Level 25.0 MEQ/L Anion Gap 10 MEQ/L Estimat Glomerular Filtration Rate 75 ML/MIN Imaging Last Impressions Lower Extremity Ultrasound 02/09/18 0000 Signed Impressions: Service Date/Time: Friday, February 09, 2018 11:45 - CONCLUSION: Normal examination. Ameya Antoine MD Chest X-Ray 02/09/18 0000 Signed Impressions: Service Date/Time: Friday, February 09, 2018 01:18 - CONCLUSION: Modest worsening bibasilar consolidation. Rom Moses MD CT Angiography 02/08/18 1353 Signed Impressions: Service Date/Time: January 14:33 - CONCLUSION: 1. There is evidence of pulmonary emboli in 2 segmental branches of the right lower lung. 2. Scattered diffuse interstitial infiltrates bilaterally. 3. Atelectasis in the right lung base. 4. Diffuse cardiomegaly. Niko Haq MD Objective Remarks GENERAL: Patient is awake alert and oriented talkative and cooperative having difficulty getting her words out still very short of breath remains on a nonrebreather mask appears to be in moderate distress SKIN: Warm and dry. HEAD: Atraumatic. Normocephalic. EYES: Pupils equal and round. No scleral icterus. No injection or drainage. Extraocular muscles intact glasses ENT: No nasal bleeding or discharge. Mucous membranes pink and moist. Tongue is midline NECK: Trachea midline. No JVD. Supple CARDIOVASCULAR: Regular rate and rhythm. S1-S2 no S3 or S4 RESPIRATORY: Mild accessory muscle use. . Breath sounds equal bilaterally. Decreased breath sounds bilaterally with some scattered rhonchi GASTROINTESTINAL: Abdomen soft, non-tender, nondistended. Hepatic and splenic margins not palpable. MUSCULOSKELETAL: Extremities without clubbing, cyanosis, or edema. No obvious deformities. NEUROLOGICAL: Awake and alert. No obvious cranial nerve deficits. Motor grossly within normal limits. 4 out of 5 muscle strength in the arms and legs. Normal speech. PSYCHIATRIC: Appropriate mood and affect; insight and judgment normal. Procedures ECHO Normal left ventricular size. Normal left ventricular size. Wall thickness is normal. The left ventricular systolic function is normal with an estimated ejection fraction in the range of 55-60%. A pacemaker wire is noted. The right ventriclar size is upper limits of normal. Mitral annular calcification is present. Moderate mitral valve regurgitation. There is severe tricuspid regurgitation. There is estimated severe pulmonary hypertension present ( 71 mmHg). Mild pulmonary valve regurgitation. Medications and IVs Current Medications Sodium Chloride (NS Flush) 2 ml UNSCH PRN IVF FLUSH AFTER USING IV ACCESS; Start 02/08/18 at 12:30; Stop 02/08/18 at 15:44; Status DC Iohexol (Omnipaque 350 Inj) 73 ml TroppinK-MED ONCE IVCONTRAST Last administered on 02/08/18at 14:35; Start 02/08/18 at 14:35; Stop 02/08/18 at 14:37; Status DC Heparin Sodium (Porcine) (Heparin Inj) 5,000 units NOW STAT IV PUSH ; Start at 15:04; Stop 02/08/18 at 15:05; Status DC Heparin Sodium (Porcine) (Heparin Inj) 5,000 units UNSCH PRN IV PUSH APTT LESS THAN 25 Last administered on 02/10/18at 18:49; Start 02/08/18 at 21:15 Heparin Sodium (Porcine) (Heparin Inj) 2,500 units UNSCH PRN IV PUSH APTT 25 TO 39 Last administered on 02/11/18at 10:56; Start 02/08/18 at 21:15; Stop at 12:07; Status DC Heparin Sodium/ Dextrose 250 ml @ 12 mls/hr TITRATE PRN IV Coagulation Management Last administered on 02/09/18at 13:22; Start 02/08/18 at 15:15; Stop 02/11/18 at 12:07; Status DC Sodium Chloride (NS Flush) 2 ml UNSCH PRN IV FLUSH FLUSH AFTER USING IV ACCESS Last administered on 02/10/18at 16:41; Start 02/08/18 at 15:45 Sodium Chloride (NS Flush) 2 ml BID IV FLUSH Last administered on 02/11/18at 09: 09; Start 02/08/18 at 21:00 Ondansetron HCl (Zofran Inj) 4 mg Q6H PRN IVP NAUSEA OR VOMITING; Start at 15:45 Naloxone HCl (Narcan Inj) 0.4 mg UNSCH PRN IV PUSH SEE LABEL COMMENTS; Start at 15:45 Senna/Docusate Sodium (Stefany-Colace) 1 tab BID PO Last administered on 02/11/18at 09:09; Start 02/08/18 at 21:00 Magnesium Hydroxide (Milk Of Magnesia Liq) 30 ml Q12H PRN PO Mild constipation ; Start 02/08/18 at 15:45 Sennosides (Senokot) 17.2 mg Q12H PRN PO Moderate constipation; Start 02/08/18 at 15:45 Bisacodyl (Dulcolax Supp) 10 mg DAILY PRN RECTAL SEVERE CONSITIPATION; Start at 15:45 Lactulose (Lactulose Liq) 30 ml DAILY PRN PO SEVERE CONSITIPATION; Start at 15:45 Heparin Sodium (Porcine) (Heparin Inj) 5,000 units NOW STAT IV PUSH Last administered on 02/08/18at 17:20; Start 02/08/18 at 17:14; Stop 02/08/18 at 17:15 ; Status DC Diltiazem HCl (Cardizem Cd) 120 mg HS PO Last administered on 02/08/18at 21:43; Start 02/08/18 at 21:00; Stop 02/09/18 at 12:09; Status DC Albuterol/ Ipratropium (Duoneb Neb) 1 ampule Q4HR NEB PRN NEB WHEEZING Last administered on 02/09/18at 04:41; Start 02/08/18 at 21:45; Stop 02/09/18 at 12:09 ; Status DC Sodium Chloride (NS Flush) 2 ml BID IV FLUSH ; Start 02/09/18 at 21:00 Sodium Chloride (NS Flush) 2 ml UNSCH PRN IV FLUSH FLUSH AFTER USING IV ACCESS ; Start 02/09/18 at 11:30 Albuterol/ Ipratropium (Duoneb Neb) 1 ampule Q4HR NEB PRN INH SOB/COUGH; Start 02/09/18 at 11:30 Albuterol/ Ipratropium (Duoneb Neb) 1 ampule Q6HR NEB INH Last administered on 02/11/18 10:16; Start 02/09/18 at 11:30 Albuterol Sulfate (Albuterol Neb) 2.5 mg Q2HR NEB PRN INH SHORTNESS OF BREATH; Start 02/09/18 at 11:30 Methylprednisolone Sodium Succinate (SoluMEDROL INJ) 60 mg Q6H IV PUSH Last administered on 02/11/18 10:56; Start 02/09/18 at 12:00 Ceftriaxone Sodium 1000 mg/ Sodium Chloride 100 ml @ 200 mls/hr Q24H IV Last administered on 02/11/18 10:55; Start 02/09/18 at 12:00 Azithromycin 500 mg/Sodium Chloride 250 ml @ 250 mls/hr Q24H IV Last administered on 02/10/18at 13:00; Start 02/09/18 at 13:00 Guaifenesin (Mucinex Er) 600 mg BID PO Last administered on 02/11/18 09:09; Start 02/09/18 at 12:00 Warfarin Sodium (Coumadin) 3 mg DAILY@16 PO ; Start 02/09/18 at 16:00; Stop at 16:00; Status DC Cholecalciferol (Vitamin D3) 5,000 units DAILY PO Last administered on 09:08; Start 02/09/18 at 14:00 Diltiazem HCl (Cardizem Cd) 240 mg DAILY PO Last administered on 02/11/18 09:09 ; Start 02/09/18 at 12:00 Diltiazem HCl (Cardizem Cd) 120 mg HS PO Last administered on 02/10/18 22:38; Start 02/09/18 at 21:00 Furosemide (Lasix) 20 mg DAILY PO Last administered on 02/11/18 09:08; Start at 12:00 Potassium Chloride (KCl) 20 meq DAILY PO Last administered on 02/11/18 09:08; Start 02/09/18 at 12:00 Pantoprazole Sodium (Protonix) 40 mg DAILY PO Last administered on 4/1/18at 09: 08; Start 02/09/18 at 12:00 Sotalol HCl (Betapace) 120 mg BID PO Last administered on 02/11/18at 09:09; Start 02/09/18 at 14:00 Patient Own Medication PT OWN MED: (Tadalafil (Pulmon... DAILY PO ; Start at 09:00; Status Future Hold Warfarin Sodium (Coumadin) 4 mg DAILY@1600 PO Last administered on 02/10/18at 16 :40; Start 02/09/18 at 16:00; Stop 02/11/18 at 12:22; Status DC Warfarin Sodium (Coumadin) 2 mg DAILY@16 PO ; Start 02/12/18 at 16:00; Status UNV Warfarin Sodium (Coumadin) 1 mg ONCE ONCE PO ; Start 02/11/18 at 12:30; Stop 02/11/18 at 12:31; Status UNV A/P Assessment and Plan Pulmonary emboli-- CTA showed PE into segmental branches of the right lower lung. Patient started on a heparin drip. Check 2D echo to rule out any cardiac strain. resuming coumadin to 4mg po daily (dose prior to cutting it in half while on prednisone) tomorrow or discuss use of newer anticoagulants. Per pt, she was doing well with Coumadin however on admission INR was 1.4. continue supplemental oxygen. Currently on 5 L. ABG showed a pH of 7.47, HCO3 of 27, CO2 of 37. Monitor pt closely. Pt wishes to be DNR. Atrial fibrillation: Pt only has her pill box and doesn't have her med bottles and doesn't remember the actual dose or what meds she takes. She states she is on sotalol and cardizem. She did have a bottle of cardizem CD 120mg po qhs which apparently she started taking 2 nights ago but states she also takes cardizem in AM but doesn't remember dose. She also doesn't remember dose of sotalol. I have requested that RN bring pills to pharmacy and see if the pharmacist can assist us w pt's meds. ON DILTIAZEM 120MG IN PM AND 240MG IN AM RELOAD COUMADIN HEPARIN DRIP GERD ON PROTONIX ON 2 LITERS OXYGEN AT ALL TIMES SOTALOL 120MG BID VITAMIN D3 Pneumonia we will treat with Rocephin and Zithromax Mucinex duo nebs incentive spirometry and steroids tremors: chronic and stable. PULMONARY HYPERTENSION ON ADCIRCA 20MG DAILY- RESUME RESUME LASIX AND POTASSIUM REPLACE POTASSIUM NEEDED Ultrasounds of bilateral lower extremities negative for DVT DVT proph:ON COUMADIN HAD ECHO Normal left ventricular size. Normal left ventricular size. Wall thickness is normal. The left ventricular systolic function is normal with an estimated ejection fraction in the range of 55-60%. A pacemaker wire is noted. The right ventriclar size is upper limits of normal. Mitral annular calcification is present. Moderate mitral valve regurgitation. There is severe tricuspid regurgitation. There is estimated severe pulmonary hypertension present ( 71 mmHg). Mild pulmonary valve regurgitation. Discharge Planning Not cleared for discharge Seen by pulmonary and oncology Evangelista Schaeffer DO Feb 11, 2018 12:36
[2018-02-11] MEDS: AZITHROMYCIN INJ 500 MG in SODIUM CHLOR 0.9% 250 ML INJ 250 ML IV SCH (13:16)
--- NOTE | 2018-02-11 15:09 | HHI.PR ---
Subjective Remarks alert less SOB Objective Vital Signs Date Time Temp Pulse Resp B/P (MAP) Pulse Ox O2 Delivery O2 Flow Rate FiO2 02/11/18 12:00 97.4 99 18 111/55 (73) 93 02/11/18 11:05 99 02/11/18 10:29 94 Venturi Mask 6.00 50 02/11/18 09:14 93 Non-Rebreather 15.00 02/11/18 08:00 97.3 102 18 111/72 (85) 93 02/11/18 05:23 97.2 107 18 113/69 (84) 93 02/11/18 00:21 97.6 100 19 115/62 (79) 95 02/10/18 20:28 95 Non-Rebreather 15.00 02/10/18 20:00 97.3 99 20 100/57 (71) 97 02/10/18 19:22 95 Non-Rebreather 15.00 02/10/18 16:00 97.7 65 18 109/56 (73) 91 02/10/18 15:13 69 I/O 02/10/18 02/10/18 02/10/18 02/11/18 02/11/18 02/11/18 07:00 15:00 23:00 07:00 15:00 23:00 Intake Total 240 ml Balance 240 ml Intake Oral 240 ml # Voids 3 2 # Bowel Movements 1 Result Diagram: 02/11/18 0845 02/11/18 0845 Objective Remarks GENERAL: SKIN: Warm and dry. HEAD: Atraumatic. Normocephalic. EYES: Pupils equal and round. No scleral icterus. No injection or drainage. ENT: No nasal bleeding or discharge. Mucous membranes pink and moist. NECK: Trachea midline. No JVD. CARDIOVASCULAR: Regular rate and rhythm. RESPIRATORY: No accessory muscle use. Clear to auscultation. Breath sounds equal bilaterally. GASTROINTESTINAL: Abdomen soft, non-tender, nondistended. Hepatic and splenic margins not palpable. MUSCULOSKELETAL: Extremities without clubbing, cyanosis, or edema. No obvious deformities. NEUROLOGICAL: Awake and alert. No obvious cranial nerve deficits. Motor grossly within normal limits. Five out of 5 muscle strength in the arms and legs. Normal speech. PSYCHIATRIC: Appropriate mood and affect; insight and judgment normal. Assessment and Plan Assessment and Plan impression respiratory failure pna pulm fibrosis plan o2 as needed antibx pulmonary toilet increase activity Renuka Grayson MD Feb 11, 2018 15:09
[2018-02-11] MEDS: SODIUM CHLORIDE 0.9% FLUSH 10 ML FLUSH IV FLUSH PRN ×2 (17:42→23:21)
[2018-02-11] MEDS: DILTIAZEM-CD 120 MG CAP ER PO SCH (23:10)
[2018-02-12] VITALS (11 sets, daily range): BP systolic 106–123; BP diastolic 58–80; PULSE 69–116; RESP 16–22; TEMP 97.5–98.2; O2SAT 91–98
[2018-02-12] MEDS: RESP: ALBUTEROL 2.5 MG/IPRATROPIUM 0.5 MG NEB (SCH) INH ×4 (03:58→20:30)
[2018-02-12] MEDS: methylPREDNISolone SOD SUCC 125 MG/2 ML VIAL IV PUSH SCH ×4 (06:23→23:41)
[2018-02-12] MEDS: SODIUM CHLORIDE 0.9% FLUSH 10 ML FLUSH IV FLUSH PRN ×2 (06:23→23:42)
[2018-02-12] MEDS: SODIUM CHLORIDE 0.9% FLUSH 10 ML FLUSH IV FLUSH SCH ×4 (09:00→22:02)
[2018-02-12] MEDS: DILTIAZEM-CD 240 MG CAP ER PO SCH (10:02)
[2018-02-12] MEDS: POTASSIUM CHLORIDE 20 MEQ CONTROLLED RELEASE TAB PO SCH (10:03)
[2018-02-12] MEDS: guaiFENesin E.R. 600 MG TAB PO SCH ×2 (10:03→22:02)
[2018-02-12] MEDS: CHOLECALCIFEROL (VIT D3) 5000 UNIT CAP PO SCH (10:03)
[2018-02-12] MEDS: PANTOPRAZOLE SOD 40 MG DELAYED RELEASE TAB PO SCH (10:03)
[2018-02-12] MEDS: DOCUSATE SODIUM 50 MG/SENNA 8.6 MG TAB PO SCH ×2 (10:03→22:00)
[2018-02-12] MEDS: FUROSEMIDE 20 MG TAB PO SCH (10:03)
[2018-02-12] MEDS: SOTALOL HCL 80 MG TAB PO SCH ×2 (10:04→22:01)
[2018-02-12 11:42] LABS: AUTOMATED NEUTROPHIL # 6.9 TH/MM3 (1.8-7.7); BASOPHIL % 0.1 % (0.0-2.0); HEMATOCRIT 37.9 % (35.0-46.0); HEMOGLOBIN 12.9 GM/DL (11.6-15.3); LYMPH % 4.3 % (9.0-44.0); LYMPHOCYTE # 0.3 TH/MM3 (1.0-4.8); MEAN CELL VOLUME 94.7 FL (80.0-100.0); MEAN CORPUSCULAR HEMOGLOBIN 32.2 PG (27.0-34.0); MEAN PLATELET VOLUME 10.1 FL (7.0-11.0); MONO % 2.5 % (0.0-8.0); MONOCYTE # 0.2 TH/MM3 (0-0.9); NEUT % 93.1 % (16.0-70.0); PLATELET COUNT 189 TH/MM3 (150-450); RED BLOOD COUNT 4.01 MIL/MM3 (4.00-5.30); RED CELL DISTRIBUTION WIDTH 16.5 % (11.6-17.2); WHITE BLOOD COUNT 7.4 TH/MM3 (4.0-11.0)
[2018-02-12 11:50] LABS: INTERNATIONAL NORMALIZED RATIO 3.3 RATIO; PROTHROMBIN TIME - PATIENT 33.2 SEC (9.8-11.6)
[2018-02-12 12:11] LABS: ALBUMIN 2.9 GM/DL (3.4-5.0); ALT (GPT) 18 U/L (10-53); AST (GOT) 20 U/L (15-37); BICARBONATE 26.2 MEQ/L (21.0-32.0); BLOOD UREA NITROGEN 27 MG/DL (7-18); CHLORIDE 107 MEQ/L (98-107); CREATININE 0.83 MG/DL (0.50-1.00); GLOMERULAR FILTRATION RATE 65 ML/MIN (>89); GLUCOSE,RANDOM 225 MG/DL (74-106); MAGNESIUM 2.1 MG/DL (1.5-2.5); PHOSPHORUS 3.2 MG/DL (2.5-4.9); SODIUM (NA) 142 MEQ/L (136-145)
[2018-02-12 12:14] LABS: ALKALINE PHOSPHATASE 51 U/L (45-117); TOTAL BILIRUBIN ADULT 0.5 MG/DL (0.2-1.0); TOTAL PROTEIN 6.2 GM/DL (6.4-8.2)
[2018-02-12] MEDS: cefTRIAXone INJ 1,000 MG in SODIUM CHLORIDE 0.9% INJ 100 ML IV SCH (12:32)
[2018-02-12] MEDS: AZITHROMYCIN INJ 500 MG in SODIUM CHLOR 0.9% 250 ML INJ 250 ML IV SCH (13:36)
--- NOTE | 2018-02-12 14:57 | HHI.PR ---
Subjective Remarks Follow-up pulmonary emboli, dyspnea. Patient has been requiring partial nonrebreather mask. She states that she feels short of breath, worse with any activity. Denies chest pain. Objective Vitals Vital Signs Date Time Temp Pulse Resp B/P (MAP) Pulse Ox O2 Delivery O2 Flow Rate FiO2 02/12/18 12:00 97.6 86 22 121/76 (91) 98 02/12/18 09:50 98 Venturi Mask 50 02/12/18 08:00 97.8 93 19 115/80 (92) 96 02/12/18 04:40 97.6 94 19 106/58 (74) 93 02/12/18 03:58 91 Venturi Mask 6.00 50 02/12/18 00:09 97.5 116 19 110/67 (81) 93 02/11/18 21:05 90 Venturi Mask 6.00 50 02/11/18 20:15 Venturi Mask 7.00 50 02/11/18 19:19 97.6 111 18 105/64 (78) 95 02/11/18 16:00 97.3 97 18 112/71 (85) 93 02/11/18 15:23 125 I/O 02/11/18 02/11/18 02/11/18 02/12/18 02/12/18 02/12/18 07:00 15:00 23:00 07:00 15:00 23:00 Intake Total 240 ml 240 ml Balance 240 ml 240 ml Intake Oral 240 ml 240 ml # Voids 2 2 Result Diagram: 02/12/18 1110 02/12/18 1110 Imaging Last Impressions Lower Extremity Ultrasound 02/09/18 0000 Signed Impressions: Service Date/Time: Friday, February 09, 2018 11:45 - CONCLUSION: Normal examination. Ameya Antoine MD Chest X-Ray 02/09/18 0000 Signed Impressions: Service Date/Time: Friday, February 09, 2018 01:18 - CONCLUSION: Modest worsening bibasilar consolidation. Rom Moses MD CT Angiography 02/08/18 1353 Signed Impressions: Service Date/Time: January 14:33 - CONCLUSION: 1. There is evidence of pulmonary emboli in 2 segmental branches of the right lower lung. 2. Scattered diffuse interstitial infiltrates bilaterally. 3. Atelectasis in the right lung base. 4. Diffuse cardiomegaly. Niko Haq MD Objective Remarks General: Elderly female in no acute distress. Heart: Regular rate and rhythm. No murmur. Lungs: Decreased breath sounds bilaterally. Scattered rhonchi. Breathing is somewhat labored when she is talking. Abdomen: Soft, nontender, nondistended. Extremities: No lower extremity edema. Psych: Alert and oriented. Procedures ECHO Normal left ventricular size. Normal left ventricular size. Wall thickness is normal. The left ventricular systolic function is normal with an estimated ejection fraction in the range of 55-60%. A pacemaker wire is noted. The right ventriclar size is upper limits of normal. Mitral annular calcification is present. Moderate mitral valve regurgitation. There is severe tricuspid regurgitation. There is estimated severe pulmonary hypertension present ( 71 mmHg). Mild pulmonary valve regurgitation. Urinary Catheter: No Vascular Central Line Catheter: No A/P Assessment and Plan 1. Pulmonary emboli: Continue Coumadin. INR is supratherapeutic. Appreciate hematology recommendations. Bilateral lower extremity ultrasounds are negative for DVT. 2. Atrial fibrillation: Continue Cardizem, sotalol. 3. Pneumonia: Continue Rocephin, Zithromax, DuoNeb, incentive spirometry, steroids. 4. Pulmonary hypertension: Continue Adcirca. Appreciate pulmonology recommendations. 5. DVT prophylaxis: Coumadin. Discharge Planning Pending further clinical improvement. César Weiss MD Feb 12, 2018 14:57
--- NOTE | 2018-02-12 15:21 | PD.ONC.PN ---
Subjective Subjective Remarks Afebrile Patient sitting up in chair at bedside eating lunch She reports her shortness of breath is unchanged She gets very winded with any type of ambulation or activity No bleeding Objective Data Date Time Temp Pulse Resp B/P (MAP) Pulse Ox O2 Delivery O2 Flow Rate FiO2 02/12/18 12:00 97.6 86 22 121/76 (91) 98 02/12/18 09:50 98 Venturi Mask 50 02/12/18 08:00 97.8 93 19 115/80 (92) 96 02/12/18 04:40 97.6 94 19 106/58 (74) 93 02/12/18 03:58 91 Venturi Mask 6.00 50 02/12/18 00:09 97.5 116 19 110/67 (81) 93 02/11/18 21:05 90 Venturi Mask 6.00 50 02/11/18 20:15 Venturi Mask 7.00 50 02/11/18 19:19 97.6 111 18 105/64 (78) 95 02/11/18 16:00 97.3 97 18 112/71 (85) 93 02/11/18 15:23 125 02/12/18 02/12/18 02/12/18 07:00 15:00 23:00 Intake Total 240 ml Balance 240 ml Result Diagram: 02/12/18 1110 02/12/18 1110 Laboratory Results Laboratory Tests Test 02/11/18 16:27 02/12/18 11:10 Activated Partial Thromboplast Time 30.4 SEC White Blood Count 7.4 TH/MM3 Red Blood Count 4.01 MIL/MM3 Hemoglobin 12.9 GM/DL Hematocrit 37.9 % Mean Corpuscular Volume 94.7 FL Mean Corpuscular Hemoglobin 32.2 PG Mean Corpuscular Hemoglobin Concent 34.0 % Red Cell Distribution Width 16.5 % Platelet Count 189 TH/MM3 Mean Platelet Volume 10.1 FL Neutrophils (%) (Auto) 93.1 % Lymphocytes (%) (Auto) 4.3 % Monocytes (%) (Auto) 2.5 % Eosinophils (%) (Auto) 0.0 % Basophils (%) (Auto) 0.1 % Neutrophils # (Auto) 6.9 TH/MM3 Lymphocytes # (Auto) 0.3 TH/MM3 Monocytes # (Auto) 0.2 TH/MM3 Eosinophils # (Auto) 0.0 TH/MM3 Basophils # (Auto) 0.0 TH/MM3 CBC Comment DIFF FINAL Differential Comment Prothrombin Time 33.2 SEC Prothromb Time International Ratio 3.3 RATIO Blood Urea Nitrogen 27 MG/DL Creatinine 0.83 MG/DL Random Glucose 225 MG/DL Total Protein 6.2 GM/DL Albumin 2.9 GM/DL Calcium Level 8.0 MG/DL Phosphorus Level 3.2 MG/DL Magnesium Level 2.1 MG/DL Alkaline Phosphatase 51 U/L Aspartate Amino Transf (AST/SGOT) 20 U/L Alanine Aminotransferase (ALT/SGPT) 18 U/L Total Bilirubin 0.5 MG/DL Sodium Level 142 MEQ/L Potassium Level 3.8 MEQ/L Chloride Level 107 MEQ/L Carbon Dioxide Level 26.2 MEQ/L Anion Gap 9 MEQ/L Estimat Glomerular Filtration Rate 65 ML/MIN Administered Medications Medications (Trade) Dose Ordered Sig/Shukri Route PRN Reason Start Time Stop Time Status Last Admin Dose Admin Heparin Sodium (Porcine) (Heparin Inj) 5,000 units UNSCH PRN IV PUSH APTT LESS THAN 25 02/08/18 21:15 Future Hold 02/10/18 18:49 Sodium Chloride (NS Flush) 2 ml UNSCH PRN IV FLUSH FLUSH AFTER USING IV ACCESS 02/08/18 15:45 02/12/18 06:23 Sodium Chloride (NS Flush) 2 ml BID IV FLUSH 02/08/18 21:00 02/12/18 09:00 Senna/Docusate Sodium (Stefany-Colace) 1 tab BID PO 02/08/18 21:00 02/12/18 10:03 Sodium Chloride (NS Flush) 2 ml BID IV FLUSH 02/09/18 21:00 02/12/18 09:00 Albuterol/ Ipratropium (Duoneb Neb) 1 ampule Q6HR NEB INH 02/09/18 11:30 02/12/18 09:50 Methylprednisolone Sodium Succinate (SoluMEDROL INJ) 60 mg Q6H IV PUSH 02/09/18 12:00 02/12/18 12:32 Ceftriaxone Sodium 1000 mg/ Sodium Chloride 100 ml @ 200 mls/hr Q24H IV 02/09/18 12:00 02/12/18 12:32 Azithromycin 500 mg/Sodium Chloride 250 ml @ 250 mls/hr Q24H IV 02/09/18 13:00 02/12/18 13:36 Guaifenesin (Mucinex Er) 600 mg BID PO 02/09/18 12:00 02/12/18 10:03 Cholecalciferol (Vitamin D3) 5,000 units DAILY PO 02/09/18 14:00 02/12/18 10:03 Diltiazem HCl (Cardizem Cd) 240 mg DAILY PO 02/09/18 12:00 02/12/18 10:02 Diltiazem HCl (Cardizem Cd) 120 mg HS PO 02/09/18 21:00 02/11/18 23:10 Furosemide (Lasix) 20 mg DAILY PO 02/09/18 12:00 02/12/18 10:03 Potassium Chloride (KCl) 20 meq DAILY PO 02/09/18 12:00 02/12/18 10:03 Pantoprazole Sodium (Protonix) 40 mg DAILY PO 02/09/18 12:00 02/12/18 10:03 Sotalol HCl (Betapace) 120 mg BID PO 02/09/18 14:00 02/12/18 10:04 Objective Remarks GENERAL: Older female sitting up in chair at bedside in no obvious distress SKIN: Warm and dry. HEAD: Normocephalic. EYES: No injection or drainage. NECK: Supple, trachea midline. CARDIOVASCULAR: Regular rate and rhythm without murmurs. RESPIRATORY: Lungs diminished. Few crackles heard at bases. GASTROINTESTINAL: Abdomen soft, non-tender, nondistended. EXTREMITIES: No cyanosis MUSCULOSKELETAL: Adequate muscle tone. NEUROLOGICAL: No obvious focal deficit. Awake, alert, and oriented x3. 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 The prednisone was tapered off a week ago. --is currently on steroids for respiratory condition --plan to monitor platelet count. (3) Shortness of breath ICD Codes: R06.02 - Shortness of breath Status: Acute Plan: ++history of respiratory insufficiency and has been on chronic oxygen. - ->not able to provide specific details of her pulmonary disorder. --on medication for pulmonary hypertension. --CT angiogram showed diffuse interstitial infiltrate and cardiomegaly. shortness of breath may be due to pulmonary edema. --currently on a diuretic. --pulmonary embolism is rather small and I doubt that it is causing her significant respiratory insufficiency. --echo showed severe TR and pulmonary hypertension Assessment 87y/o female admitted with recurrent pulmonary embolism. history of pulmonary embolism about 15 years ago requiring embolectomy at that time. has been on Coumadin since that time. history of chronic atrial fibrillation. 5 weeks ago, she was started on prednisone because her platelet count was low and her prednisone was tapered off about a week ago. Pulmonary disorder on chronic oxygen. Tremor. Plan 1. Hold Coumadin today for supratherapeutic INR 2. INR in a.m. 3. Monitor CBC Attending Statement The exam, history, and the medical decision-making described in the above note were completed with the assistance of the mid-level provider. I reviewed and agree with the findings presented. I attest that I had a [id number] encounter with the patient on the same day, and personally performed and documented my assessment and findings in the medical record. SOB slightly improved. INR 3.3. Continue to titrate coumadin. Can be d/c once clear by pulmonology. Layla Espana Feb 12, 2018 15:21 Gui Palma MD Feb 12, 2018 17:09
--- NOTE | 2018-02-12 15:58 | HHI.PR ---
Subjective Remarks alert less SOB Objective Vital Signs Date Time Temp Pulse Resp B/P (MAP) Pulse Ox O2 Delivery O2 Flow Rate FiO2 02/12/18 12:00 97.6 86 22 121/76 (91) 98 02/12/18 09:50 98 Venturi Mask 50 02/12/18 08:00 97.8 93 19 115/80 (92) 96 02/12/18 04:40 97.6 94 19 106/58 (74) 93 02/12/18 03:58 91 Venturi Mask 6.00 50 02/12/18 00:09 97.5 116 19 110/67 (81) 93 02/11/18 21:05 90 Venturi Mask 6.00 50 02/11/18 20:15 Venturi Mask 7.00 50 02/11/18 19:19 97.6 111 18 105/64 (78) 95 02/11/18 16:00 97.3 97 18 112/71 (85) 93 I/O 02/11/18 02/11/18 02/11/18 02/12/18 02/12/18 02/12/18 07:00 15:00 23:00 07:00 15:00 23:00 Intake Total 240 ml 240 ml Balance 240 ml 240 ml Intake Oral 240 ml 240 ml # Voids 2 2 Result Diagram: 02/12/18 1110 02/12/18 1110 Objective Remarks GENERAL: SKIN: Warm and dry. HEAD: Atraumatic. Normocephalic. EYES: Pupils equal and round. No scleral icterus. No injection or drainage. ENT: No nasal bleeding or discharge. Mucous membranes pink and moist. NECK: Trachea midline. No JVD. CARDIOVASCULAR: Regular rate and rhythm. RESPIRATORY: No accessory muscle use. Clear to auscultation. Breath sounds equal bilaterally. GASTROINTESTINAL: Abdomen soft, non-tender, nondistended. Hepatic and splenic margins not palpable. MUSCULOSKELETAL: Extremities without clubbing, cyanosis, or edema. No obvious deformities. NEUROLOGICAL: Awake and alert. No obvious cranial nerve deficits. Motor grossly within normal limits. Five out of 5 muscle strength in the arms and legs. Normal speech. PSYCHIATRIC: Appropriate mood and affect; insight and judgment normal. Assessment and Plan Assessment and Plan impression respiratory failure pna pulm fibrosis plan o2 as needed antibx pulmonary toilet increase activity F/U CXRAY Renuka Graysone MD Feb 12, 2018 15:58
--- NOTE | 2018-02-12 17:36 | RADRPT ---
EXAM DATE/TIME: 02/12/2018 16:56 [facility] COMPARISON: CHEST SINGLE AP, February 09, 2018, 1:18. INDICATIONS : Pneumonia. MEDICAL HISTORY : Cardiovascular disease. SURGICAL HISTORY : CABG. Pacemaker. ENCOUNTER: Initial ACUITY: 3 days PAIN SCORE: 0/10 LOCATION: Bilateral chest FINDINGS: Slight improvement in the left basilar consolidative infiltrate with residual pleural effusion and bl unting of left costophrenic angle. Patchy areas of opacity in the right lower lobe are stable from p rior. The right hemidiaphragm and right heart border is well delineated and stop multiple healed rig ht rib fractures. Cardiac pacer leads stable. CONCLUSION: Improving left lower lung infiltrates with residual pleural effusion. Celso Leyva MD on February 12, 2018 at 17:33 Board Certified Radiologist. This report was verified electronically.
[2018-02-12] MEDS: DILTIAZEM-CD 120 MG CAP ER PO SCH (22:01)
[2018-02-13] VITALS (11 sets, daily range): BP systolic 109–134; BP diastolic 66–77; PULSE 60–98; RESP 16–19; TEMP 97.2–97.9; O2SAT 92–96
[2018-02-13] MEDS: RESP: ALBUTEROL 2.5 MG/IPRATROPIUM 0.5 MG NEB (SCH) INH ×2 (04:05→09:30)
[2018-02-13] MEDS: SODIUM CHLORIDE 0.9% FLUSH 10 ML FLUSH IV FLUSH PRN (05:59)
[2018-02-13] MEDS: methylPREDNISolone SOD SUCC 125 MG/2 ML VIAL IV PUSH SCH ×4 (05:59→23:41)
[2018-02-13 08:54] LABS: AUTOMATED NEUTROPHIL # 7.6 TH/MM3 (1.8-7.7); BASOPHIL % 0.1 % (0.0-2.0); HEMATOCRIT 39.4 % (35.0-46.0); HEMOGLOBIN 13.3 GM/DL (11.6-15.3); LYMPHOCYTE # 0.4 TH/MM3 (1.0-4.8); MEAN CELL VOLUME 93.8 FL (80.0-100.0); MEAN CORPUSCULAR HEMOGLOBIN 31.7 PG (27.0-34.0); MEAN CORPUSCULAR HGB CONC 33.8 % (32.0-36.0); MEAN PLATELET VOLUME 9.8 FL (7.0-11.0); MONO % 2.7 % (0.0-8.0); MONOCYTE # 0.2 TH/MM3 (0-0.9); NEUT % 92.2 % (16.0-70.0); PLATELET COUNT 208 TH/MM3 (150-450); RED CELL DISTRIBUTION WIDTH 16.1 % (11.6-17.2); WHITE BLOOD COUNT 8.2 TH/MM3 (4.0-11.0)
[2018-02-13] MEDS: guaiFENesin E.R. 600 MG TAB PO SCH ×2 (09:00→19:49)
[2018-02-13] MEDS: DILTIAZEM-CD 240 MG CAP ER PO SCH (09:00)
[2018-02-13] MEDS: SODIUM CHLORIDE 0.9% FLUSH 10 ML FLUSH IV FLUSH SCH ×4 (09:00→19:50)
[2018-02-13] MEDS: FUROSEMIDE 20 MG TAB PO SCH (09:00)
[2018-02-13 09:03] LABS: INTERNATIONAL NORMALIZED RATIO 2.3 RATIO; PROTHROMBIN TIME - PATIENT 23.1 SEC (9.8-11.6)
[2018-02-13] MEDS: POTASSIUM CHLORIDE 20 MEQ CONTROLLED RELEASE TAB PO SCH (09:28)
[2018-02-13] MEDS: SOTALOL HCL 80 MG TAB PO SCH ×2 (09:29→19:49)
[2018-02-13] MEDS: CHOLECALCIFEROL (VIT D3) 5000 UNIT CAP PO SCH (09:29)
[2018-02-13] MEDS: PANTOPRAZOLE SOD 40 MG DELAYED RELEASE TAB PO SCH (09:30)
[2018-02-13] MEDS: DOCUSATE SODIUM 50 MG/SENNA 8.6 MG TAB PO SCH ×2 (09:30→19:49)
--- NOTE | 2018-02-13 09:40 | HHI.PR ---
Subjective Remarks Follow up pneumonia, pulmonary emboli. Patient still having dyspnea, slightly better today. No chest pain, nausea, vomiting. Objective Vitals Vital Signs Date Time Temp Pulse Resp B/P (MAP) Pulse Ox O2 Delivery O2 Flow Rate FiO2 02/13/18 05:58 97.5 89 19 134/77 (96) 93 02/13/18 04:06 94 Nasal Cannula 4.00 02/13/18 04:00 88 02/13/18 00:00 98 02/12/18 23:44 97.7 69 17 123/69 (87) 02/12/18 23:02 95 Nasal Cannula 4.00 02/12/18 20:32 94 Nasal Cannula 4.00 02/12/18 20:07 97.8 107 16 110/58 (75) 92 02/12/18 20:00 115 02/12/18 16:00 98.2 76 20 120/78 (92) 98 02/12/18 13:37 93 Nasal Cannula 4.00 02/12/18 12:00 97.6 86 22 121/76 (91) 98 02/12/18 10:00 Venturi Mask 7.00 50 02/12/18 09:50 98 Venturi Mask 50 I/O 02/12/18 02/12/18 02/12/18 02/13/18 02/13/18 02/13/18 07:00 15:00 23:00 07:00 15:00 23:00 Intake Total 240 ml 240 ml Balance 240 ml 240 ml Intake Oral 240 ml 240 ml # Voids 2 4 Result Diagram: 02/13/18 0840 02/12/18 1110 Imaging Last Impressions Chest X-Ray 02/12/18 0000 Signed Impressions: Service Date/Time: Monday, February 12, 2018 16:56 - CONCLUSION: Improving left lower lung infiltrates with residual pleural effusion. Celso Leyva MD Lower Extremity Ultrasound 02/09/18 0000 Signed Impressions: Service Date/Time: Friday, February 09, 2018 11:45 - CONCLUSION: Normal examination. Ameya Antoine MD CT Angiography 02/08/18 1353 Signed Impressions: Service Date/Time: January 14:33 - CONCLUSION: 1. There is evidence of pulmonary emboli in 2 segmental branches of the right lower lung. 2. Scattered diffuse interstitial infiltrates bilaterally. 3. Atelectasis in the right lung base. 4. Diffuse cardiomegaly. Niko Haq MD Objective Remarks General: Elderly female in no acute distress. Heart: Regular rate and rhythm. No murmur. Lungs: Decreased breath sounds bilaterally. Scattered rhonchi. Breathing is somewhat labored when she is talking. Abdomen: Soft, nontender, nondistended. Extremities: No lower extremity edema. Psych: Alert and oriented. Procedures ECHO Normal left ventricular size. Normal left ventricular size. Wall thickness is normal. The left ventricular systolic function is normal with an estimated ejection fraction in the range of 55-60%. A pacemaker wire is noted. The right ventriclar size is upper limits of normal. Mitral annular calcification is present. Moderate mitral valve regurgitation. There is severe tricuspid regurgitation. There is estimated severe pulmonary hypertension present ( 71 mmHg). Mild pulmonary valve regurgitation. Urinary Catheter: No Vascular Central Line Catheter: No A/P Assessment and Plan 1. Pulmonary emboli: Continue Coumadin. INR is therapeutic. Appreciate hematology recommendations. Bilateral lower extremity ultrasounds are negative for DVT. Oxygen requirement 4L (2.5L chronically at home). 2. Atrial fibrillation: Continue Cardizem, sotalol. 3. Pneumonia: Continue Rocephin, Zithromax, DuoNeb, incentive spirometry, steroids. CXR shows improvement. 4. Pulmonary hypertension: Continue Adcirca. Appreciate pulmonology recommendations. 5. DVT prophylaxis: Coumadin. Discharge Planning Pending further clinical improvement. César Weiss MD Feb 13, 2018 09:40
[2018-02-13] MEDS: cefTRIAXone INJ 1,000 MG in SODIUM CHLORIDE 0.9% INJ 100 ML IV SCH (12:26)
--- NOTE | 2018-02-13 12:46 | PD.ONC.PN ---
Subjective Subjective Remarks Afebrile overnight. patient resting in bed in nad. breathing is improved. now on nasal cannula. Objective Data Date Time Temp Pulse Resp B/P (MAP) Pulse Ox O2 Delivery O2 Flow Rate FiO2 02/13/18 12:30 94 Nasal Cannula 4.00 02/13/18 08:00 97.9 90 19 109/72 (84) 93 02/13/18 05:58 97.5 89 19 134/77 (96) 93 02/13/18 04:06 94 Nasal Cannula 4.00 02/13/18 04:00 88 02/13/18 00:00 98 02/12/18 23:44 97.7 69 17 123/69 (87) 02/12/18 23:02 95 Nasal Cannula 4.00 02/12/18 20:32 94 Nasal Cannula 4.00 02/12/18 20:07 97.8 107 16 110/58 (75) 92 02/12/18 20:00 115 02/12/18 16:00 98.2 76 20 120/78 (92) 98 02/12/18 13:37 93 Nasal Cannula 4.00 02/13/18 02/13/18 02/13/18 07:00 15:00 23:00 Intake Total 240 ml Balance 240 ml Result Diagram: 02/13/18 0840 02/12/18 1110 Laboratory Results Laboratory Tests Test 02/13/18 08:40 White Blood Count 8.2 TH/MM3 Red Blood Count 4.20 MIL/MM3 Hemoglobin 13.3 GM/DL Hematocrit 39.4 % Mean Corpuscular Volume 93.8 FL Mean Corpuscular Hemoglobin 31.7 PG Mean Corpuscular Hemoglobin Concent 33.8 % Red Cell Distribution Width 16.1 % Platelet Count 208 TH/MM3 Mean Platelet Volume 9.8 FL Neutrophils (%) (Auto) 92.2 % Lymphocytes (%) (Auto) 5.0 % Monocytes (%) (Auto) 2.7 % Eosinophils (%) (Auto) 0.0 % Basophils (%) (Auto) 0.1 % Neutrophils # (Auto) 7.6 TH/MM3 Lymphocytes # (Auto) 0.4 TH/MM3 Monocytes # (Auto) 0.2 TH/MM3 Eosinophils # (Auto) 0.0 TH/MM3 Basophils # (Auto) 0.0 TH/MM3 CBC Comment DIFF FINAL Differential Comment Prothrombin Time 23.1 SEC Prothromb Time International Ratio 2.3 RATIO Administered Medications Medications (Trade) Dose Ordered Sig/Shukri Route PRN Reason Start Time Stop Time Status Last Admin Dose Admin Sodium Chloride (NS Flush) 2 ml UNSCH PRN IV FLUSH FLUSH AFTER USING IV ACCESS 02/08/18 15:45 02/13/18 05:59 Sodium Chloride (NS Flush) 2 ml BID IV FLUSH 02/08/18 21:00 02/13/18 09:00 Senna/Docusate Sodium (Stefany-Colace) 1 tab BID PO 02/08/18 21:00 02/13/18 09:30 Sodium Chloride (NS Flush) 2 ml BID IV FLUSH 02/09/18 21:00 02/13/18 09:00 Methylprednisolone Sodium Succinate (SoluMEDROL INJ) 60 mg Q6H IV PUSH 02/09/18 12:00 02/13/18 12:26 Ceftriaxone Sodium 1000 mg/ Sodium Chloride 100 ml @ 200 mls/hr Q24H IV 02/09/18 12:00 02/13/18 12:26 Azithromycin 500 mg/Sodium Chloride 250 ml @ 250 mls/hr Q24H IV 02/09/18 13:00 02/12/18 13:36 Guaifenesin (Mucinex Er) 600 mg BID PO 02/09/18 12:00 02/13/18 09:00 Cholecalciferol (Vitamin D3) 5,000 units DAILY PO 02/09/18 14:00 02/13/18 09:29 Diltiazem HCl (Cardizem Cd) 240 mg DAILY PO 02/09/18 12:00 02/13/18 09:00 Diltiazem HCl (Cardizem Cd) 120 mg HS PO 02/09/18 21:00 02/12/18 22:01 Furosemide (Lasix) 20 mg DAILY PO 02/09/18 12:00 02/13/18 09:00 Potassium Chloride (KCl) 20 meq DAILY PO 02/09/18 12:00 02/13/18 09:28 Pantoprazole Sodium (Protonix) 40 mg DAILY PO 02/09/18 12:00 02/13/18 09:30 Sotalol HCl (Betapace) 120 mg BID PO 02/09/18 14:00 02/13/18 09:29 Objective Remarks GENERAL: pleasant elderly female sitting up in bed in nad. On 4L O2 via NC SKIN: Warm and dry. HEAD: Normocephalic. EYES: No injection or drainage. NECK: Supple, trachea midline. CARDIOVASCULAR: Regular rate and rhythm RESPIRATORY: diminished at bases, anterior amanda clear. GASTROINTESTINAL: Abdomen soft, non-tender, nondistended. EXTREMITIES: No cyanosis NEUROLOGICAL: awake, alert. normal speech. 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 The prednisone was tapered off a week ago. --is currently on steroids for respiratory condition --plan to monitor platelet count. (3) Shortness of breath ICD Codes: R06.02 - Shortness of breath Status: Acute Plan: ++history of respiratory insufficiency and has been on chronic oxygen. - ->not able to provide specific details of her pulmonary disorder. --on medication for pulmonary hypertension. --CT angiogram showed diffuse interstitial infiltrate and cardiomegaly. shortness of breath may be due to pulmonary edema. --currently on a diuretic. --pulmonary embolism is rather small and I doubt that it is causing her significant respiratory insufficiency. --echo showed severe TR and pulmonary hypertension Assessment 87y/o female admitted with recurrent pulmonary embolism. history of pulmonary embolism about 15 years ago requiring embolectomy at that time. has been on Coumadin since that time. history of chronic atrial fibrillation. 5 weeks ago, she was started on prednisone because her platelet count was low and her prednisone was tapered off about a week ago. Pulmonary disorder on chronic oxygen. Tremor. Plan 1. resume coumadin today 2. monitor INR Attending Statement The exam, history, and the medical decision-making described in the above note were completed with the assistance of the mid-level provider. I reviewed and agree with the findings presented. I attest that I had a [id number] encounter with the patient on the same day, and personally performed and documented my assessment and findings in the medical record. SOB slightly improved. No bleeding. INR now therapeutic, continue to titrate coumadin. Can be d/c when clear by pulmonology. Faviola Shane Feb 13, 2018 12:46 Gui Palma MD Feb 13, 2018 15:11
[2018-02-13] MEDS: AZITHROMYCIN INJ 500 MG in SODIUM CHLOR 0.9% 250 ML INJ 250 ML IV SCH (14:52)
[2018-02-13 15:52] LABS: HOMOCYSTEINE 5.7 umol/L (<10.4)
[2018-02-13] MEDS: WARFARIN SOD 2 MG TAB PO SCH (16:46)
--- NOTE | 2018-02-13 19:06 | HHI.PR ---
Subjective Remarks alert NO SOB Objective Vital Signs Date Time Temp Pulse Resp B/P (MAP) Pulse Ox O2 Delivery O2 Flow Rate FiO2 02/13/18 16:00 97.5 64 19 109/66 (80) 92 02/13/18 13:32 94 Nasal Cannula 4.00 02/13/18 12:30 94 Nasal Cannula 4.00 02/13/18 12:00 97.9 91 18 118/74 (89) 94 02/13/18 08:00 97.9 90 19 109/72 (84) 93 02/13/18 05:58 97.5 89 19 134/77 (96) 93 02/13/18 04:06 94 Nasal Cannula 4.00 02/13/18 04:00 88 02/13/18 00:00 98 02/12/18 23:44 97.7 69 17 123/69 (87) 02/12/18 23:02 95 Nasal Cannula 4.00 02/12/18 20:32 94 Nasal Cannula 4.00 02/12/18 20:07 97.8 107 16 110/58 (75) 92 02/12/18 20:00 115 I/O 02/12/18 02/12/18 02/12/18 02/13/18 02/13/18 02/13/18 07:00 15:00 23:00 07:00 15:00 23:00 Intake Total 240 ml 240 ml Balance 240 ml 240 ml Intake Oral 240 ml 240 ml # Voids 2 4 Result Diagram: 02/13/18 0840 02/12/18 1110 Objective Remarks GENERAL: SKIN: Warm and dry. HEAD: Atraumatic. Normocephalic. EYES: Pupils equal and round. No scleral icterus. No injection or drainage. ENT: No nasal bleeding or discharge. Mucous membranes pink and moist. NECK: Trachea midline. No JVD. CARDIOVASCULAR: Regular rate and rhythm. RESPIRATORY: No accessory muscle use. Clear to auscultation. Breath sounds equal bilaterally. GASTROINTESTINAL: Abdomen soft, non-tender, nondistended. Hepatic and splenic margins not palpable. MUSCULOSKELETAL: Extremities without clubbing, cyanosis, or edema. No obvious deformities. NEUROLOGICAL: Awake and alert. No obvious cranial nerve deficits. Motor grossly within normal limits. Five out of 5 muscle strength in the arms and legs. Normal speech. PSYCHIATRIC: Appropriate mood and affect; insight and judgment normal. Assessment and Plan Assessment and Plan impression respiratory failure pna IMPROVING plan o2 as needed antibx pulmonary toilet increase activity HOME SOON Renuka Grayson MD Feb 13, 2018 19:06
[2018-02-13] MEDS: DILTIAZEM-CD 120 MG CAP ER PO SCH (19:49)
[2018-02-13 20:48] LABS: PROTEIN C ACTIVITY 64 % (70 - 150); PROTEIN S ACTIVITY 82 % (65 - 160)
[2018-02-14] VITALS (10 sets, daily range): BP systolic 109–132; BP diastolic 61–82; PULSE 59–93; RESP 18–20; TEMP 97.2–98.8; O2SAT 92–98
[2018-02-14 03:48] LABS: ANTI-THROMBIN III ACT 84 (80-120)
[2018-02-14] MEDS: methylPREDNISolone SOD SUCC 125 MG/2 ML VIAL IV PUSH SCH ×3 (05:41→17:51)
[2018-02-14 07:29] LABS: HEMATOCRIT 37.8 % (35.0-46.0); HEMOGLOBIN 12.9 GM/DL (11.6-15.3); MEAN CELL VOLUME 93.6 FL (80.0-100.0); MEAN CORPUSCULAR HEMOGLOBIN 31.8 PG (27.0-34.0); MEAN PLATELET VOLUME 9.5 FL (7.0-11.0); PLATELET COUNT 174 TH/MM3 (150-450); RED BLOOD COUNT 4.04 MIL/MM3 (4.00-5.30); RED CELL DISTRIBUTION WIDTH 15.2 % (11.6-17.2); WHITE BLOOD COUNT 7.7 TH/MM3 (4.0-11.0)
[2018-02-14 07:33] LABS: INTERNATIONAL NORMALIZED RATIO 2.3 RATIO; PROTHROMBIN TIME - PATIENT 23.6 SEC (9.8-11.6)
[2018-02-14] MEDS: guaiFENesin E.R. 600 MG TAB PO SCH ×2 (08:51→20:41)
[2018-02-14] MEDS: DOCUSATE SODIUM 50 MG/SENNA 8.6 MG TAB PO SCH ×2 (08:51→20:42)
[2018-02-14] MEDS: SODIUM CHLORIDE 0.9% FLUSH 10 ML FLUSH IV FLUSH SCH ×4 (08:52→20:41)
[2018-02-14] MEDS: POTASSIUM CHLORIDE 20 MEQ CONTROLLED RELEASE TAB PO SCH (08:53)
[2018-02-14] MEDS: PANTOPRAZOLE SOD 40 MG DELAYED RELEASE TAB PO SCH (08:53)
[2018-02-14] MEDS: CHOLECALCIFEROL (VIT D3) 5000 UNIT CAP PO SCH (08:53)
[2018-02-14] MEDS: DILTIAZEM-CD 240 MG CAP ER PO SCH (08:53)
[2018-02-14] MEDS: FUROSEMIDE 20 MG TAB PO SCH (08:54)
[2018-02-14] MEDS: SOTALOL HCL 80 MG TAB PO SCH ×2 (09:00→20:41)
--- NOTE | 2018-02-14 12:03 | PD.ONC.PN ---
Subjective Subjective Remarks Afebrile overnight. patient resting in room. states breathing is okay as long as she stays still. when she exerts herself, she becomes dyspneic. she is asking when she can go home. Objective Data Date Time Temp Pulse Resp B/P (MAP) Pulse Ox O2 Delivery O2 Flow Rate FiO2 02/14/18 09:54 96 Nasal Cannula 4.00 02/14/18 07:57 97.5 67 18 128/70 (89) 92 02/14/18 05:37 92 Nasal Cannula 3.00 02/14/18 05:02 97.2 62 18 132/75 (94) 94 02/14/18 04:00 59 02/14/18 04:00 98.2 61 18 129/68 (88) 92 02/14/18 00:00 59 02/13/18 23:44 97.4 60 16 115/67 (83) 96 02/13/18 23:05 96 Nasal Cannula 4.00 02/13/18 20:00 70 02/13/18 19:45 97.2 64 16 116/ 02/13/18 16:00 97.5 64 19 109/66 (80) 92 02/13/18 13:32 94 Nasal Cannula 4.00 02/13/18 12:30 94 Nasal Cannula 4.00 02/13/18 12:00 97.9 91 18 118/74 (89) 94 Result Diagram: 02/14/18 0706 02/12/18 1110 Laboratory Results Laboratory Tests Test 02/14/18 07:06 White Blood Count 7.7 TH/MM3 Red Blood Count 4.04 MIL/MM3 Hemoglobin 12.9 GM/DL Hematocrit 37.8 % Mean Corpuscular Volume 93.6 FL Mean Corpuscular Hemoglobin 31.8 PG Mean Corpuscular Hemoglobin Concent 34.0 % Red Cell Distribution Width 15.2 % Platelet Count 174 TH/MM3 Mean Platelet Volume 9.5 FL Prothrombin Time 23.6 SEC Prothromb Time International Ratio 2.3 RATIO Administered Medications Medications (Trade) Dose Ordered Sig/Shukri Route PRN Reason Start Time Stop Time Status Last Admin Dose Admin Sodium Chloride (NS Flush) 2 ml UNSCH PRN IV FLUSH FLUSH AFTER USING IV ACCESS 02/08/18 15:45 02/13/18 05:59 Sodium Chloride (NS Flush) 2 ml BID IV FLUSH 02/08/18 21:00 02/14/18 08:52 Senna/Docusate Sodium (Stefany-Colace) 1 tab BID PO 02/08/18 21:00 02/13/18 19:49 Sodium Chloride (NS Flush) 2 ml BID IV FLUSH 02/09/18 21:00 02/14/18 08:52 Methylprednisolone Sodium Succinate (SoluMEDROL INJ) 60 mg Q6H IV PUSH 02/09/18 12:00 02/14/18 05:41 Ceftriaxone Sodium 1000 mg/ Sodium Chloride 100 ml @ 200 mls/hr Q24H IV 02/09/18 12:00 02/13/18 12:26 Azithromycin 500 mg/Sodium Chloride 250 ml @ 250 mls/hr Q24H IV 02/09/18 13:00 02/13/18 14:52 Guaifenesin (Mucinex Er) 600 mg BID PO 02/09/18 12:00 02/13/18 19:49 Cholecalciferol (Vitamin D3) 5,000 units DAILY PO 02/09/18 14:00 02/14/18 08:53 Diltiazem HCl (Cardizem Cd) 240 mg DAILY PO 02/09/18 12:00 02/14/18 08:53 Diltiazem HCl (Cardizem Cd) 120 mg HS PO 02/09/18 21:00 02/13/18 19:49 Furosemide (Lasix) 20 mg DAILY PO 02/09/18 12:00 02/14/18 08:54 Potassium Chloride (KCl) 20 meq DAILY PO 02/09/18 12:00 02/14/18 08:53 Pantoprazole Sodium (Protonix) 40 mg DAILY PO 02/09/18 12:00 02/14/18 08:53 Sotalol HCl (Betapace) 120 mg BID PO 02/09/18 14:00 02/14/18 09:00 Warfarin Sodium (Coumadin) 2 mg DAILY@16 PO 02/12/18 16:00 Future hold 02/13/18 16:46 Objective Remarks GENERAL: Pleasant female, dyspneic appearing sitting up in bed. on 4L O2 via NC SKIN: Warm and dry. HEAD: Normocephalic. EYES: no injection or drainage. NECK: Supple, trachea midline. CARDIOVASCULAR: Regular rate and rhythm RESPIRATORY: dyspneic. coarse breath sounds bilaterally. GASTROINTESTINAL: Abdomen soft, non-tender, nondistended. EXTREMITIES: No cyanosis MUSCULOSKELETAL: Adequate muscle tone. NEUROLOGICAL: awake and alert. normal speech. Assessment/Plan Problem List: (1) Pulmonary embolism ICD Codes: I26.99 - Other pulmonary embolism without acute cor pulmonale Status: Acute Plan: --Patient on Coumadin --LE U/S showed no DVT (2) Shortness of breath ICD Codes: R06.02 - Shortness of breath Status: Acute Plan: --Renuka with pulmonology is following. --echo showed severe TR and pulmonary hypertension (3) possible h/o ITP Plan: --reported that platelet count was very a few weeks ago and she was started on prednisone about 5 weeks ago. The prednisone was tapered off a week ago. --is currently on steroids for respiratory condition --plan to monitor platelet count. Assessment 87y/o female admitted with recurrent pulmonary embolism. history of pulmonary embolism about 15 years ago requiring embolectomy at that time. has been on Coumadin since that time. history of chronic atrial fibrillation. 5 weeks ago, she was started on prednisone because her platelet count was low and her prednisone was tapered off about a week ago. Pulmonary disorder on chronic oxygen. Tremor. Plan 1. continue coumadin at current dosing. 2. monitor INR, CBC Attending Statement The exam, history, and the medical decision-making described in the above note were completed with the assistance of the mid-level provider. I reviewed and agree with the findings presented. I attest that I had a [id number] encounter with the patient on the same day, and personally performed and documented my assessment and findings in the medical record. No bleeding. SOB stable. INR therapeutic. Can be d/c once clear by pulmonology. Continue to titrate coumadin. Faviola Shane Feb 14, 2018 12:03 Gui Palma MD Feb 14, 2018 14:58
[2018-02-14] MEDS: cefTRIAXone INJ 1,000 MG in SODIUM CHLORIDE 0.9% INJ 100 ML IV SCH (12:17)
[2018-02-14] MEDS: AZITHROMYCIN INJ 500 MG in SODIUM CHLOR 0.9% 250 ML INJ 250 ML IV SCH (13:26)
--- NOTE | 2018-02-14 14:18 | HHI.PR ---
Subjective Remarks Follow up dyspnea, weakness. Patient states that she is feeling a little better. Still very weak. Has difficulty getting to the restroom at times due to weakness, dyspnea. Objective Vitals Vital Signs Date Time Temp Pulse Resp B/P (MAP) Pulse Ox O2 Delivery O2 Flow Rate FiO2 02/14/18 12:00 98.8 93 18 109/61 (77) 98 02/14/18 09:54 96 Nasal Cannula 4.00 02/14/18 07:57 97.5 67 18 128/70 (89) 92 02/14/18 05:37 92 Nasal Cannula 3.00 02/14/18 05:02 97.2 62 18 132/75 (94) 94 02/14/18 04:00 59 02/14/18 04:00 98.2 61 18 129/68 (88) 92 02/14/18 00:00 59 02/13/18 23:44 97.4 60 16 115/67 (83) 96 02/13/18 23:05 96 Nasal Cannula 4.00 02/13/18 20:00 70 02/13/18 19:45 97.2 64 16 116/ 02/13/18 16:00 97.5 64 19 109/66 (80) 92 I/O 02/13/18 02/13/18 02/13/18 02/14/18 02/14/18 02/14/18 06:59 14:59 22:59 06:59 14:59 22:59 Intake Total 240 ml Balance 240 ml Intake Oral 240 ml # Voids 4 2 Result Diagram: 02/14/18 0706 02/12/18 1110 Imaging Last Impressions Chest X-Ray 02/12/18 0000 Signed Impressions: Service Date/Time: Monday, February 12, 2018 16:56 - CONCLUSION: Improving left lower lung infiltrates with residual pleural effusion. Celso Leyva MD Lower Extremity Ultrasound 02/09/18 0000 Signed Impressions: Service Date/Time: Friday, February 09, 2018 11:45 - CONCLUSION: Normal examination. Ameya Antoine MD CT Angiography 02/08/18 1353 Signed Impressions: Service Date/Time: January 14:33 - CONCLUSION: 1. There is evidence of pulmonary emboli in 2 segmental branches of the right lower lung. 2. Scattered diffuse interstitial infiltrates bilaterally. 3. Atelectasis in the right lung base. 4. Diffuse cardiomegaly. Niko Haq MD Objective Remarks General: Elderly female in no acute distress. Sitting up in a chair. Heart: Regular rate and rhythm. No murmur. Lungs: Clear to auscultation bilaterally. No wheezes noted. Abdomen: Soft, nontender, nondistended. Extremities: No lower extremity edema. Psych: Alert and oriented. Procedures ECHO Normal left ventricular size. Normal left ventricular size. Wall thickness is normal. The left ventricular systolic function is normal with an estimated ejection fraction in the range of 55-60%. A pacemaker wire is noted. The right ventriclar size is upper limits of normal. Mitral annular calcification is present. Moderate mitral valve regurgitation. There is severe tricuspid regurgitation. There is estimated severe pulmonary hypertension present ( 71 mmHg). Mild pulmonary valve regurgitation. Urinary Catheter: No Vascular Central Line Catheter: No A/P Assessment and Plan 1. Pulmonary emboli: Continue Coumadin. INR is therapeutic. Appreciate hematology recommendations. Bilateral lower extremity ultrasounds are negative for DVT. Oxygen requirement 3-4L (2.5L chronically at home). 2. Atrial fibrillation: Continue Cardizem, sotalol. 3. Pneumonia: Continue Rocephin, Zithromax, DuoNeb, incentive spirometry, steroids. CXR shows improvement. 4. Pulmonary hypertension: Continue Adcirca. Appreciate pulmonology recommendations. 5. DVT prophylaxis: Coumadin. Discharge Planning Pending pulmonology clearance and further clinical improvement. César Weiss MD Feb 14, 2018 14:18
[2018-02-14 15:53] LABS: DRVVT 1:1 MIX ND (CORRECTED); DRVVT CONFIRM ND (NEGATIVE); HEXAGONAL PHASE CONFIRM WEAKLY POSITIVE (NEGATIVE)
[2018-02-14] MEDS: WARFARIN SOD 2 MG TAB PO SCH (16:00)
[2018-02-14] MEDS: DILTIAZEM-CD 120 MG CAP ER PO SCH (20:41)
[2018-02-15] VITALS (10 sets, daily range): BP systolic 118–163; BP diastolic 58–88; PULSE 59–114; RESP 16–22; TEMP 97–97.8; O2SAT 93–96
[2018-02-15] MEDS: methylPREDNISolone SOD SUCC 125 MG/2 ML VIAL IV PUSH SCH ×5 (00:42→23:46)
[2018-02-15 03:51] LABS: ACTIVATED PROTEIN C RESISTANCE 5.1 ratio (> OR = 2.1)
[2018-02-15 07:22] LABS: INTERNATIONAL NORMALIZED RATIO 2.6 RATIO; PROTHROMBIN TIME - PATIENT 26.1 SEC (9.8-11.6)
[2018-02-15] MEDS: SODIUM CHLORIDE 0.9% FLUSH 10 ML FLUSH IV FLUSH SCH ×4 (08:15→22:44)
[2018-02-15] MEDS: SOTALOL HCL 80 MG TAB PO SCH ×2 (08:16→22:35)
[2018-02-15] MEDS: POTASSIUM CHLORIDE 20 MEQ CONTROLLED RELEASE TAB PO SCH (08:16)
[2018-02-15] MEDS: DILTIAZEM-CD 240 MG CAP ER PO SCH (08:16)
[2018-02-15] MEDS: DOCUSATE SODIUM 50 MG/SENNA 8.6 MG TAB PO SCH ×2 (08:17→21:00)
[2018-02-15] MEDS: guaiFENesin E.R. 600 MG TAB PO SCH ×2 (08:17→21:00)
[2018-02-15] MEDS: PANTOPRAZOLE SOD 40 MG DELAYED RELEASE TAB PO SCH (08:17)
[2018-02-15] MEDS: CHOLECALCIFEROL (VIT D3) 5000 UNIT CAP PO SCH (08:17)
[2018-02-15] MEDS: FUROSEMIDE 20 MG TAB PO SCH (08:17)
--- NOTE | 2018-02-15 08:19 | PD.ONC.PN ---
Subjective Subjective Remarks Feeling better. Able to ambulate around the hallway yesterday. No bleeding. Objective Data Date Time Temp Pulse Resp B/P (MAP) Pulse Ox O2 Delivery O2 Flow Rate FiO2 02/15/18 07:55 61 02/14/18 22:18 Nasal Cannula 4.00 02/14/18 20:00 98.0 73 20 120/82 (95) 95 02/14/18 17:13 67 02/14/18 16:00 97.5 70 18 122/73 (89) 93 02/14/18 15:06 95 3.00 02/14/18 15:06 70 02/14/18 12:00 98.8 93 18 109/61 (77) 98 02/14/18 09:54 96 Nasal Cannula 4.00 Result Diagram: 02/14/18 0706 02/12/18 1110 Laboratory Results Laboratory Tests Test 02/15/18 06:45 Prothrombin Time 26.1 SEC Prothromb Time International Ratio 2.6 RATIO Administered Medications Medications (Trade) Dose Ordered Sig/Shukri Route PRN Reason Start Time Stop Time Status Last Admin Dose Admin Sodium Chloride (NS Flush) 2 ml UNSCH PRN IV FLUSH FLUSH AFTER USING IV ACCESS 02/08/18 15:45 02/13/18 05:59 Sodium Chloride (NS Flush) 2 ml BID IV FLUSH 02/08/18 21:00 02/14/18 20:41 Senna/Docusate Sodium (Stefany-Colace) 1 tab BID PO 02/08/18 21:00 02/13/18 19:49 Sodium Chloride (NS Flush) 2 ml BID IV FLUSH 02/09/18 21:00 02/14/18 08:52 Methylprednisolone Sodium Succinate (SoluMEDROL INJ) 60 mg Q6H IV PUSH 02/09/18 12:00 02/15/18 06:42 Ceftriaxone Sodium 1000 mg/ Sodium Chloride 100 ml @ 200 mls/hr Q24H IV 02/09/18 12:00 02/14/18 12:17 Azithromycin 500 mg/Sodium Chloride 250 ml @ 250 mls/hr Q24H IV 02/09/18 13:00 02/14/18 13:26 Guaifenesin (Mucinex Er) 600 mg BID PO 02/09/18 12:00 02/14/18 20:41 Cholecalciferol (Vitamin D3) 5,000 units DAILY PO 02/09/18 14:00 02/14/18 08:53 Diltiazem HCl (Cardizem Cd) 240 mg DAILY PO 02/09/18 12:00 02/14/18 08:53 Diltiazem HCl (Cardizem Cd) 120 mg HS PO 02/09/18 21:00 02/14/18 20:41 Furosemide (Lasix) 20 mg DAILY PO 02/09/18 12:00 02/14/18 08:54 Potassium Chloride (KCl) 20 meq DAILY PO 02/09/18 12:00 02/14/18 08:53 Pantoprazole Sodium (Protonix) 40 mg DAILY PO 02/09/18 12:00 02/14/18 08:53 Sotalol HCl (Betapace) 120 mg BID PO 02/09/18 14:00 02/14/18 20:41 Warfarin Sodium (Coumadin) 2 mg DAILY@16 PO 02/12/18 16:00 Future hold 02/14/18 16:00 Objective Remarks GENERAL: Well-nourished, well-developed patient. SKIN: Warm and dry. HEAD: Normocephalic. EYES: No scleral icterus. No injection or drainage. NECK: Supple, trachea midline. No JVD or lymphadenopathy. LYMPHATIC: No adenopathy. CARDIOVASCULAR: Regular rate and rhythm without murmurs. RESPIRATORY: Distant breath sound, on O2 GASTROINTESTINAL: Abdomen soft, non-tender, nondistended. EXTREMITIES: No cyanosis, or edema. MUSCULOSKELETAL: Adequate muscle tone. NEUROLOGICAL: No obvious focal deficit. Awake, alert, and oriented x3. PSYCHIATRIC: Appropriate mood and affect; insight and judgment normal. Assessment/Plan Problem List: (1) Pulmonary embolism ICD Codes: I26.99 - Other pulmonary embolism without acute cor pulmonale Status: Acute Plan: --Patient on Coumadin, INT therapeutic --LE U/S showed no DVT --Small PE (2) Shortness of breath ICD Codes: R06.02 - Shortness of breath Status: Acute Plan: --Renuka with pulmonology is following. --echo showed severe TR and pulmonary hypertension (3) possible h/o ITP Plan: --Platelet stable --reported that platelet count was very a few weeks ago and she was started on prednisone about 5 weeks ago. The prednisone was tapered off a week ago. --is currently on steroids for respiratory condition --plan to monitor platelet count. Assessment 87y/o female admitted with recurrent pulmonary embolism. history of pulmonary embolism about 15 years ago requiring embolectomy at that time. has been on Coumadin since that time. history of chronic atrial fibrillation. 5 weeks ago, she was started on prednisone because her platelet count was low and her prednisone was tapered off about a week ago. Pulmonary disorder on chronic oxygen. Tremor. Plan 1. continue coumadin at current dosing. Consult pharmacy to monitor. 2. Can be d/c once clear by pulmonology. 3. Hematology will sign off. Gui Palma MD Feb 15, 2018 08:19
[2018-02-15 11:50] LABS: PHOSPHATIDYLSERINE AB IGA LESS THAN 20.0 U/mL (< 20.0); PHOSPHATIDYLSERINE AB IGG LESS THAN 10.0 U/mL (< 11.0); PHOSPHATIDYLSERINE AB IGM LESS THAN 25.0 U/mL (< 25.0)
[2018-02-15] MEDS: cefTRIAXone INJ 1,000 MG in SODIUM CHLORIDE 0.9% INJ 100 ML IV SCH (12:03)
[2018-02-15] MEDS: AZITHROMYCIN INJ 500 MG in SODIUM CHLOR 0.9% 250 ML INJ 250 ML IV SCH (12:04)
--- NOTE | 2018-02-15 14:42 | HHI.PR ---
Subjective Remarks Follow up dyspnea, weakness. Patient still having significant dyspnea with any exertion. Requiring 4L oxygen today. No chest pain. Feels very weak. Objective Vitals Vital Signs Date Time Temp Pulse Resp B/P (MAP) Pulse Ox O2 Delivery O2 Flow Rate FiO2 02/15/18 12:53 97.4 70 16 120/58 (78) 95 02/15/18 12:00 59 02/15/18 08:40 97.8 60 16 131/68 (89) 96 02/15/18 07:55 61 02/15/18 07:00 96 Nasal Cannula 4.00 02/15/18 04:00 97.0 61 18 123/73 (90) 95 02/15/18 00:00 97.6 114 20 163/88 (113) 95 02/14/18 22:18 Nasal Cannula 4.00 02/14/18 20:00 98.0 73 20 120/82 (95) 95 02/14/18 17:13 67 02/14/18 16:00 97.5 70 18 122/73 (89) 93 02/14/18 15:06 95 3.00 02/14/18 15:06 70 I/O 02/14/18 02/14/18 02/14/18 02/15/18 02/15/18 02/15/18 07:00 15:00 23:00 07:00 15:00 23:00 Intake Total 480 ml Balance 480 ml Intake Oral 480 ml # Voids 2 8 2 # Bowel Movements 1 Result Diagram: 02/14/18 0706 02/12/18 1110 Imaging Last Impressions Chest X-Ray 02/12/18 0000 Signed Impressions: Service Date/Time: Monday, February 12, 2018 16:56 - CONCLUSION: Improving left lower lung infiltrates with residual pleural effusion. Celso Leyva MD Lower Extremity Ultrasound 02/09/18 0000 Signed Impressions: Service Date/Time: Friday, February 09, 2018 11:45 - CONCLUSION: Normal examination. Ameya Antoine MD CT Angiography 02/08/18 1353 Signed Impressions: Service Date/Time: January 14:33 - CONCLUSION: 1. There is evidence of pulmonary emboli in 2 segmental branches of the right lower lung. 2. Scattered diffuse interstitial infiltrates bilaterally. 3. Atelectasis in the right lung base. 4. Diffuse cardiomegaly. Niko aHq MD Objective Remarks General: Elderly female in no acute distress. Sitting up in a chair. Heart: Regular rate and rhythm. No murmur. Lungs: Rhonchi on the right. Abdomen: Soft, nontender, nondistended. Extremities: No lower extremity edema. Psych: Alert and oriented. Procedures ECHO Normal left ventricular size. Normal left ventricular size. Wall thickness is normal. The left ventricular systolic function is normal with an estimated ejection fraction in the range of 55-60%. A pacemaker wire is noted. The right ventriclar size is upper limits of normal. Mitral annular calcification is present. Moderate mitral valve regurgitation. There is severe tricuspid regurgitation. There is estimated severe pulmonary hypertension present ( 71 mmHg). Mild pulmonary valve regurgitation. Urinary Catheter: No Vascular Central Line Catheter: No A/P Assessment and Plan 1. Pulmonary emboli: Continue Coumadin. INR is therapeutic. Appreciate hematology recommendations. Bilateral lower extremity ultrasounds are negative for DVT. Oxygen requirement 4L (2.5L chronically at home). 2. Atrial fibrillation: Continue Cardizem, sotalol. 3. Pneumonia: Continue Rocephin, Zithromax, DuoNeb, incentive spirometry, steroids. CXR shows improvement. Increased oxygen requirement today. Repeat CXR. 4. Pulmonary hypertension: Continue Adcirca. Appreciate pulmonology recommendations. 5. DVT prophylaxis: Coumadin. Discharge Planning Pending pulmonology clearance and further clinical improvement. César Weiss MD Feb 15, 2018 14:42
--- NOTE | 2018-02-15 15:06 | RADRPT ---
EXAM DATE/TIME: 02/15/2018 14:50 [facility] COMPARISON: CT PULMONARY ANGIOGRAM, February 08, 2018, 14:33. CHEST PA & LAT, February 12, 2018, 16:56. INDICATIONS : Pneumonia MEDICAL HISTORY : Cardiovascular disease. SURGICAL HISTORY : CABG. Pacemaker. ENCOUNTER: Initial ACUITY: 3 days PAIN SCORE: 0/10 LOCATION: Bilateral chest FINDINGS: The heart is enlarged. There is a left basilar effusion. There diffuse interstitial changes throughou t both lungs. There are COPD changes throughout both lungs. The transvenous pacer in place. The exam is similar in appearance to previous dated 02/12/18. CONCLUSION: 1. COPD changes with cardiomegaly and left basilar effusion. 2. Stable compared to previous dated 02/12/18. Dwayne Christy MD on February 15, 2018 at 15:01 Board Certified Radiologist. This report was verified electronically.
[2018-02-15] MEDS: WARFARIN SOD 2 MG TAB PO SCH (16:15)
--- NOTE | 2018-02-15 17:02 | HHI.PR ---
Subjective Remarks alert NO SOB ON O2 4 L/NC C/O BEING VERY WEEK Objective Vital Signs Date Time Temp Pulse Resp B/P (MAP) Pulse Ox O2 Delivery O2 Flow Rate FiO2 02/15/18 16:21 97.5 64 18 118/60 (79) 95 02/15/18 12:53 97.4 70 16 120/58 (78) 95 02/15/18 12:00 59 02/15/18 08:40 97.8 60 16 131/68 (89) 96 02/15/18 07:55 61 02/15/18 07:00 96 Nasal Cannula 4.00 02/15/18 04:00 97.0 61 18 123/73 (90) 95 02/15/18 00:00 97.6 114 20 163/88 (113) 95 02/14/18 22:18 Nasal Cannula 4.00 02/14/18 20:00 98.0 73 20 120/82 (95) 95 02/14/18 17:13 67 I/O 02/14/18 02/14/18 02/14/18 02/15/18 02/15/18 02/15/18 07:00 15:00 23:00 07:00 15:00 23:00 Intake Total 480 ml Balance 480 ml Intake Oral 480 ml # Voids 2 8 2 # Bowel Movements 1 Result Diagram: 02/14/18 0706 02/12/18 1110 Objective Remarks GENERAL: SKIN: Warm and dry. HEAD: Atraumatic. Normocephalic. EYES: Pupils equal and round. No scleral icterus. No injection or drainage. ENT: No nasal bleeding or discharge. Mucous membranes pink and moist. NECK: Trachea midline. No JVD. CARDIOVASCULAR: Regular rate and rhythm. RESPIRATORY: No accessory muscle use. Clear to auscultation. Breath sounds equal bilaterally. GASTROINTESTINAL: Abdomen soft, non-tender, nondistended. Hepatic and splenic margins not palpable. MUSCULOSKELETAL: Extremities without clubbing, cyanosis, or edema. No obvious deformities. NEUROLOGICAL: Awake and alert. No obvious cranial nerve deficits. Motor grossly within normal limits. Five out of 5 muscle strength in the arms and legs. Normal speech. PSYCHIATRIC: Appropriate mood and affect; insight and judgment normal. Assessment and Plan Assessment and Plan impression respiratory failure pna IMPROVING plan o2 as needed antibx pulmonary toilet increase activity PROBABLY D/C TO REHAB FOR FEW WEEKS WOULD BE BEST PRIOR TO TRAVELL UP Renuka Angel MD Feb 15, 2018 17:02
[2018-02-15] MEDS: RESP: ALBUTEROL 2.5 MG/IPRATROPIUM 0.5 MG NEB (SCH) INH ×2 (18:21→19:50)
[2018-02-15] MEDS: DILTIAZEM-CD 120 MG CAP ER PO SCH (22:35)
[2018-02-16] VITALS (9 sets, daily range): BP systolic 118–135; BP diastolic 60–76; PULSE 59–69; RESP 17–19; TEMP 97.2–97.7; O2SAT 92–100
[2018-02-16 03:52] LABS: BETA2-GLYCOPROTEIN IGA <9 SAU (< OR = 20); BETA2-GLYCOPROTEIN IGG <9 SGU (< OR = 20); BETA2-GLYCOPROTEIN IGM <9 SMU (< OR = 20)
[2018-02-16] MEDS: methylPREDNISolone SOD SUCC 125 MG/2 ML VIAL IV PUSH SCH ×2 (05:43→13:04)
[2018-02-16] MEDS: DOCUSATE SODIUM 50 MG/SENNA 8.6 MG TAB PO SCH (07:43)
[2018-02-16] MEDS: POTASSIUM CHLORIDE 20 MEQ CONTROLLED RELEASE TAB PO SCH (07:45)
[2018-02-16] MEDS: CHOLECALCIFEROL (VIT D3) 5000 UNIT CAP PO SCH (07:45)
[2018-02-16] MEDS: DILTIAZEM-CD 240 MG CAP ER PO SCH (07:45)
[2018-02-16] MEDS: SOTALOL HCL 80 MG TAB PO SCH (07:45)
[2018-02-16] MEDS: guaiFENesin E.R. 600 MG TAB PO SCH (07:45)
[2018-02-16] MEDS: FUROSEMIDE 20 MG TAB PO SCH (07:45)
[2018-02-16] MEDS: PANTOPRAZOLE SOD 40 MG DELAYED RELEASE TAB PO SCH (07:45)
[2018-02-16] MEDS: SODIUM CHLORIDE 0.9% FLUSH 10 ML FLUSH IV FLUSH SCH ×2 (07:46→07:47)
[2018-02-16] MEDS: RESP: ALBUTEROL 2.5 MG/IPRATROPIUM 0.5 MG NEB (SCH) INH ×2 (07:59→12:50)
[2018-02-16] MEDS ORDERED: AZIT500T2 PO (08:32)
[2018-02-16] MEDS ORDERED: CEFU1TAB18 PO (08:32)
[2018-02-16] MEDS ORDERED: PRED20 PO (08:32)
[2018-02-16] MEDS ORDERED: COUM2TAB PO (08:32)
--- NOTE | 2018-02-16 08:33 | HHI.DCPOC ---
Discharge Care Plan Diagnosis: (1) Pneumonia (2) Atrial fibrillation (3) Pulmonary hypertension (4) Pulmonary embolism Goals to Promote Your Health * To prevent worsening of your condition and complications * To maintain your health at the optimal level Directions to Meet Your Goals Take your medications as prescribed Follow your dietary instruction Follow activity as directed Keep your appointments as scheduled Take your immunizations and boosters as scheduled If your symptoms worsen call your PCP, if no PCP go to Urgent Care Center or Emergency Room Smoking is Dangerous to Your Health. Avoid second hand smoke Call the 24-hour hour crisis hotline for domestic abuse at César Weiss MD Feb 16, 2018 08:33
--- NOTE | 2018-02-16 08:37 | HHI.DS ---
Discharge Summary Admission Date Feb 08, 2018 at 15:38 Discharge Date: Feb 16, 2018 Admitting Diagnosis Shortness of breath/hypoxia/PE (1) Shortness of breath ICD Code: R06.02 - Shortness of breath Status: Acute (2) Pulmonary embolism ICD Code: I26.99 - Other pulmonary embolism without acute cor pulmonale Status: Acute (3) Atrial fibrillation ICD Code: I48.91 - Unspecified atrial fibrillation (4) Pulmonary hypertension ICD Code: I27.20 - Pulmonary hypertension, unspecified (5) Pneumonia ICD Code: J18.9 - Pneumonia, unspecified organism Procedures ECHO Normal left ventricular size. Normal left ventricular size. Wall thickness is normal. The left ventricular systolic function is normal with an estimated ejection fraction in the range of 55-60%. A pacemaker wire is noted. The right ventriclar size is upper limits of normal. Mitral annular calcification is present. Moderate mitral valve regurgitation. There is severe tricuspid regurgitation. There is estimated severe pulmonary hypertension present ( 71 mmHg). Mild pulmonary valve regurgitation. Brief History - From Admission Patient is an 87-year-old female with past medical history of tremors, history of rib fractures/T8 fracture, PE, atrial fibrillation presented to the emergency room with worsening shortness of breath. Patient states this started about a week ago. It progressively got worse to the point that today she told her that she needed to go to the emergency room for further evaluation. She states that she chronically uses oxygen at home and uses about 2.5 L a day. She states that the tremors do affect her speech and that is normal for her. She is from [facility] and is visiting. She is supposed to leave to [place] on Monday. She states that she is on Coumadin, however, her dose was decreased while she was on a prednisone taper. She was put on a prednisone taper by her lifter/driver because of low platelet count. She does not know the actual diagnosis however her last platelet which was measured in January of this year was 108. She states she was on the prednisone for 5 weeks and prior to being on prednisone her Coumadin dose was 2 mg p.o. daily, now she is taking 1mg po daily. She denies any chest pain, nausea or vomiting, abdominal pain, burning with urination or increased urinary frequency. She does have some sinus drainage, admits to mild cough related to that. CBC/BMP: 02/14/18 0706 02/12/18 1110 Significant Findings Laboratory Tests Test 02/13/18 08:40 02/14/18 07:06 02/15/18 06:45 02/16/18 07:54 Neutrophils (%) (Auto) 92.2 % (16.0-70.0) Lymphocytes (%) (Auto) 5.0 % (9.0-44.0) Lymphocytes # (Auto) 0.4 TH/MM3 (1.0-4.8) Prothrombin Time 23.1 SEC (9.8-11.6) 23.6 SEC (9.8-11.6) 26.1 SEC (9.8-11.6) Imaging Last Impressions Chest X-Ray 02/15/18 0000 Signed Impressions: Service Date/Time: February 14:50 - CONCLUSION: 1. COPD changes with cardiomegaly and left basilar effusion. 2. Stable compared to previous dated 02/12/18. Dwayne Christy MD Lower Extremity Ultrasound 02/09/18 0000 Signed Impressions: Service Date/Time: Friday, February 09, 2018 11:45 - CONCLUSION: Normal examination. Ameya Antoine MD CT Angiography 02/08/18 1353 Signed Impressions: Service Date/Time: January 14:33 - CONCLUSION: 1. There is evidence of pulmonary emboli in 2 segmental branches of the right lower lung. 2. Scattered diffuse interstitial infiltrates bilaterally. 3. Atelectasis in the right lung base. 4. Diffuse cardiomegaly. Niko Haq MD PE at Discharge General: Elderly female in no acute distress. Sitting up in a chair. Heart: Regular rate and rhythm. No murmur. Lungs: Rhonchi on the right. Abdomen: Soft, nontender, nondistended. Extremities: No lower extremity edema. Psych: Alert and oriented. Pt update on day of discharge The patient states that she continues to feel very weak. She gets short of breath with any activity. Denies chest pain. Cough is nonproductive. She wants to go to rehab as soon as possible. Hospital Course The patient was admitted for further management of pulmonary embolus. She was started on heparin drip and Coumadin bridging to therapeutic INR. Hematology was consulted and assisted with management of anticoagulation. Pulmonology was consulted for assistance with management of acute on chronic respiratory failure. She was treated with antibiotics for pneumonia. When the INR was therapeutic, heparin drip was discontinued and patient was continued on Coumadin. Supplemental oxygen was weaned. The patient was cleared for discharge to rehab by pulmonology. Pt Condition on Discharge: Stable Discharge Disposition: Discharge to SNF Discharge Time: > 30 minutes Discharge Instructions DIET: Follow Instructions for: As Tolerated, No Restrictions Activities you can perform: Regular-No Restrictions Follow up Referrals: PCP Follow-up - 2 Weeks Pulmonology - 2 Weeks New Medications: Azithromycin (Azithromycin) 500 Mg Tab 500 MG PO DAILY for Infection, #5 TAB 0 Refills Cefuroxime (Ceftin) 250 Mg Tab 250 MG PO BID for Infection, #14 TAB 0 Refills Prednisone (Prednisone) 20 Mg Tab 20 MG PO DIRECTED for Inflammation, #24 TAB 0 Refills Take 60 MG daily x 4 days, then 40 MG x 4 days, then 20 MG daily x 4 days, then resume 10mg daily. Warfarin (Coumadin) 2 Mg Tab 2 MG PO DAILY@16 for Pulmonary Embolus, #30 TAB 0 Refills Continued Medications: Acetaminophen (Tylenol) 325 Mg Tab 500 MG PO BID PRN for PAIN SCALE 1 TO 10, TAB 0 Refills Cholecalciferol (Vitamin D3) 5,000 Unit Cap 5000 UNITS PO DAILY for Nutritional Supplement, #30 CAP 0 Refills Diltiazem ER 24 HR (Diltiazem ER 24 HR) 240 Mg [place] 120 MG PO HS, #30 TAB 0 Refills Diltiazem ER 24 HR (Diltiazem ER 24 HR) 240 Mg Caper 240 MG PO DAILY, #30 CAP 0 Refills Furosemide (Furosemide) 20 Mg Tab 20 MG PO DAILY, #30 TAB 0 Refills Omeprazole (Omeprazole) 40 Mg Cap 40 MG PO DAILY, #30 CAP 0 Refills Potassium Chloride Microencaps (Klor-Con M20) 20 Meq Tab 20 MEQ PO DAILY for Electrolyte Replacement, #30 TAB 0 Refills Sotalol (Sotalol) 120 Mg Tab 120 MG PO BID for Regulate Heart Beat, #60 TAB 0 Refills Tadalafil (Pulmonary Hypertension) (Adcirca) 20 Mg Tab 20 MG PO DAILY for Pulm. arterial hypertension, #60 TAB 0 Refills [ophth] () 0.05 DROP OP DIRECTED Discontinued Medications: Prednisone (Prednisone) 10 Mg Tab 10 MG PO DIRECTED, TAB 0 Refills Warfarin (Warfarin) 4 Mg Tab 4 MG PO MONDAY for Blood Clot Prevention, #30 TAB 0 Refills César Weiss MD Feb 16, 2018 08:37
[2018-02-16 08:48] LABS: PROTHROMBIN TIME - PATIENT 30.4 SEC (9.8-11.6)
--- NOTE | 2018-02-16 08:56 | HHI.PR ---
Subjective Remarks alert NO SOB ON O2 4 L/NC C/O BEING VERY WEEK Objective Vital Signs Date Time Temp Pulse Resp B/P (MAP) Pulse Ox O2 Delivery O2 Flow Rate FiO2 02/16/18 08:03 95 Nasal Cannula 4.00 02/16/18 08:00 97.7 60 18 135/76 (95) 100 02/16/18 04:30 59 02/16/18 04:00 97.2 63 19 118/65 (82) 95 02/16/18 01:02 Room Air 4.00 02/16/18 00:30 64 02/16/18 00:00 97.5 69 17 130/64 (86) 92 02/15/18 20:30 59 02/15/18 20:00 97.1 63 22 124/70 (88) 93 02/15/18 17:59 95 Nasal Cannula 4.00 02/15/18 16:21 97.5 64 18 118/60 (79) 95 02/15/18 12:53 97.4 70 16 120/58 (78) 95 02/15/18 12:00 59 I/O 02/15/18 02/15/18 02/15/18 02/16/18 02/16/18 02/16/18 07:00 15:00 23:00 07:00 15:00 23:00 Intake Total 480 ml Balance 480 ml Intake Oral 480 ml # Voids 8 2 3 # Bowel Movements 1 0 Result Diagram: 02/14/18 0706 02/12/18 1110 Objective Remarks GENERAL: SKIN: Warm and dry. HEAD: Atraumatic. Normocephalic. EYES: Pupils equal and round. No scleral icterus. No injection or drainage. ENT: No nasal bleeding or discharge. Mucous membranes pink and moist. NECK: Trachea midline. No JVD. CARDIOVASCULAR: Regular rate and rhythm. RESPIRATORY: No accessory muscle use. Clear to auscultation. Breath sounds equal bilaterally. GASTROINTESTINAL: Abdomen soft, non-tender, nondistended. Hepatic and splenic margins not palpable. MUSCULOSKELETAL: Extremities without clubbing, cyanosis, or edema. No obvious deformities. NEUROLOGICAL: Awake and alert. No obvious cranial nerve deficits. Motor grossly within normal limits. Five out of 5 muscle strength in the arms and legs. Normal speech. PSYCHIATRIC: Appropriate mood and affect; insight and judgment normal. Assessment and Plan Assessment and Plan impression respiratory failure pna IMPROVING plan o2 as needed antibx pulmonary toilet increase activity PROBABLY D/C TO REHAB FOR FEW WEEKS WOULD BE BEST PRIOR TO TRAVELL UP Renuka Angel MD Feb 16, 2018 08:56
[2018-02-16 12:19] LABS: CARDIOLIPIN IGG AB <9.4 GPL; CARDIOLIPIN IGM AB <9.4 MPL
[2018-02-16] MEDS: cefTRIAXone INJ 1,000 MG in SODIUM CHLORIDE 0.9% INJ 100 ML IV SCH (13:05)
[2018-02-16] MEDS: AZITHROMYCIN INJ 500 MG in SODIUM CHLOR 0.9% 250 ML INJ 250 ML IV SCH (13:05)
== END 2018-02-16 15:25 | DRG 175 ==
LOC: NEPC 11:29 → NEDA 15:38 → N05A 17:42
PROVIDERS: ADMIT Family Medicine; ATTEND Family Medicine
DX: I26.99 Other pulmonary embolism without acute cor pulmonale (principal); J18.9 Pneumonia, unspecified organism; J96.21 Acute and chronic respiratory failure with hypoxia; I48.2 Chronic atrial fibrillation; I27.20 Pulmonary hypertension, unspecified; Z99.81 Dependence on supplemental oxygen; Z79.01 Long term (current) use of anticoagulants; R79.1 Abnormal coagulation profile; Z66 Do not resuscitate; R25.1 Tremor, unspecified; K21.9 Gastro-esophageal reflux disease without esophagitis; Z86.718 Personal history of other venous thrombosis and embolism; Z86.711 Personal history of pulmonary embolism; Z87.891 Personal history of nicotine dependence
CPT/HCPCS: 36600; 71045; 71046; 71275; 80053; 81240; 81241; 81291; 82550; 82805; 83090; 83735; 83880; 84100; 84484; 85007; 85025; 85027; 85240; 85300; 85303; 85306; 85307; 85598; 85610; 85613; 85670; 85730; 86146; 86147; 86148; 87040; 93005; 93306; 93970; 94150; 94640; 94664; 99285; J0456; J0696; J1644; J2930; J7050; Q9967